=== PATIENT | female | born 1970 | race Caucasian/White ===

== ENCOUNTER → 2016-12-13 | Outpatient (CLI) | payer OTHER ==
[~2016-12-13] MED LIST: BUPIVACAINE HCL 0.25% 30 ML VIAL As Ordered ONE; ISOVUE-M 300 61% 15ML VIAL (Q9967) As Ordered ONE; LIDOCAINE 1% SDV INJ 30 ML VIAL As Ordered ONE; TRIAMCINOLONE ACETONIDE SUSP 40 MG/ML VIAL (J3301) As Ordered ONE; diazePAM 5 MG TAB As Ordered ONE; oxyCODONE 5MG TAB As Ordered ONE
--- NOTE | 2016-12-13 13:54 | REP ---
Partial SI joint series: Two views. History: SI joint block for pain. 35 seconds of fluoroscopy time is reported. Findings: A sequence of two fluoroscopically obtained into procedural spot radiographs of the right SI joint document needle position and contrast injection associated with SI joint injection procedure. Signed by Mark Lewis MD 12/13/2016 01:44 P
--- NOTE | 2016-12-19 00:39 | ECWPNPC ---
PATIENT NAME: ULISES PEREZ : 1970 GENDER: FEMALE VISIT DATE: 12/13/2016 DISCHARGE DATE: 12/13/16 1234 VISIT LOCKED DATE TIME: PHYSICIAN: SREE VILLALOBOS RESOURCE: SREE VILLALOBOS REASON FOR APPOINTMENT 1. SIJ HISTORY OF PRESENT ILLNESS HISTORY OF PRESENT ILLNESS: PAIN THE PATIENT DESCRIBES THE PAIN... FALL RISK SCREENING: SCREENING :NO FALLS IN THE PAST YEAR CURRENT MEDICATIONS TAKING PANTOPRAZOLE SODIUM 40 MG TABLET DELAYED RELEASE ORAL , NOTES: > 1 WEEK TAKING IBUPROFEN 400 MG TABLET ORAL THREE TIMES DAILY NEEDED, NOTES: 12/12/16 1400 TAKING LISINOPRIL 40 MG TABLET ORAL ONCE DAILY, NOTES: 12/13/16 0800 TAKING AMLODIPINE BESYLATE 10 MG TABLET ORAL ONCE DAILY, NOTES: 12/13/16 0800 TAKING VITAMIN D (ERGOCALCIFEROL) 14278 UNIT CAPSULE ORAL WEEKLY, NOTES: 12/08/16 TAKING REPAGLINIDE 2 MG TABLET ORAL BID, NOTES: 12/13/16 2100 TAKING OXYCODONE-ACETAMINOPHEN 5-325 MG TABLET 1 TAB ORAL Q8H PRN MDD3, NOTES: > 2 WEEKS TAKING TYLENOL 1 TAB ORAL EVERY 4 HOURS NEEDED, NOTES: > 2 WEEKS TAKING CYCLOBENZAPRINE HCL 5 MG TABLET 1 TAB ORAL THREE TIMES DAILY NEEDED, NOTES: > 2 WEEKS TAKING IBUPROFEN 800 MG TABLET 1 TABLET ORALLY THREE TIMES A DAY, NOTES: 12/12/16 1400 NOT-TAKING VALIUM 5 MG TABLET 1 ORALLY 1 TAB 1HR PREPROC. MDD1, NOTES: 08/15/16 10:45 NOT-TAKING OXYCODONE HCL 5 MG TABLET 1 TABLET ORALLY 1TAB 1HR PREPROC. MDD1, NOTES: 08/15/16 10:45 NOT-TAKING GABAPENTIN 100 MG CAPSULE ORAL UNKNOWN PREDNISONE 20 MG TABLET ORAL TAPERED DOSE MEDICATION LIST REVIEWED AND RECONCILED WITH THE PATIENT PAST MEDICAL HISTORY HEADACHE HTN POLYCYSTIC OVARIES SEASONAL ALLERGIC RHINITIS / HAY FEVER SLEEP APNEA ALLERGIES SULFA (FOR ALLERGY USE ONLY): RASH GRAPEFRIUT: RASH TOMATO: RASH SOCIAL HISTORY GENERAL: TOBACCO USE ARE YOU A:NONSMOKER LEARNING BARRIERS / SPECIAL NEEDS ORIENTED TO PLAN OF CARE: PATIENT, PAIN MANAGEMENT PATIENT, ORIENTED TO PLAN OF CARE: PATIENT, PAIN MANAGEMENT PATIENT. NEW PATIENT PAIN DIARY TODAY'S VISITNOTES FROM 0-10, WHAT LEVEL IS YOUR PAIN TODAY?0 PAIN CLINIC PFS, CLERGY, PUBLIC HEALTH REFERRALS PFS REFERRAL NEEDED?NO CLERGY REFERRAL NEEDED?NO PUBLIC HEALTH REFERRAL NEEDED?NO WAS THE PROVIDER NOTIFIED OF ANY PERTINENT INFO?NO PFS REFERRAL NEEDED?NO CLERGY REFERRAL NEEDED?NO PUBLIC HEALTH REFERRAL NEEDED?NO WAS THE PROVIDER NOTIFIED OF ANY PERTINENT INFO?NO REVIEW OF SYSTEMS CONSTITUTIONAL: ANY CHANGE IN YOUR MEDICAL CONDITION? NO . CHILLS NO . FEVER NO . INFECTION: DO YOU HAVE NEW INFECTIONS? NO . DO YOU HAVE HISTORY OF MRSA? NO . MUSCULOSKELETAL: ANY NEW PATTERNS OF PAIN OR NUMBNESS? NO . GASTROENTEROLOGY: ANY NEW CHANGE IN BOWEL CONTROL? NO . GENITOURINARY: ANY NEW CHANGE IN BLADDER CONTROL? NO . IS THERE A CHANCE YOU COULD BE ? NO . HEMATOLOGY/LYMPH: DO YOU TAKE ANY BLOOD THINNERS? (FOR EXAMPLE- COUMADIN, PLAVIX, AGGRENOX, PLATEL, PRADAXA, OR XARELTO) NO . WHEN WAS YOUR LAST DOSE? DATE: TIME: . NEUROLOGY: HAVE YOU FALLEN IN THE PAST 6 MONTHS? NO . ANY NEW EXTREMITY NUMBNESS OR WEAKNESS? NO . CARDIOLOGY: DO YOU HAVE A PACEMAKER OR DEFIBRILLATOR? NO . RESPIRATORY: HAVE YOU BEEN SICK IN THE PAST WEEK? NO . FEVER NO . FLU LIKE SYMPTOMS? NO . COUGH NO . INTEGUMENTARY: DO YOU HAVE ANY RASHES OR OPEN SORES? NO . ALLERGIC/IMMUNO: ARE YOU ALLERGIC TO SHELLFISH OR IV DYE? PT REPORTS SOME NAUSEA WITH IV DYE DURING CT SCAN. PT REPORTS SHE HAS HAD NO PROBLEM WITH DYE WITH PREVIOUS PROCEDURES AT PAIN CENTER . ANY NEW ALLERGIES? NO . PSYCHIATRIC: DO YOU HAVE THOUGHTS OF HURTING YOURSELF OR SOMEONE ELSE? NO . ARE YOU ABUSED, NEGLECTED, OR IN AN UNSAFE ENVIRONMENT? NO . ENDOCRINOLOGY: ARE YOU DIABETIC? YES . OTHER: DO YOU NEED ANY PRESCRIPTIONS? NO . IF YES, PLEASE LIST: ____ . ANY NEW PROBLEMS WITH YOUR MEDICATIONS? NO . WHEN DID YOU LAST EAT? ____12/12/16 1900 . WHEN DID YOU LAST DRINK? ____12/13/16 0800 . WHAT DID YOU LAST DRINK? ____WATER . NAME OF PERSON DRIVING YOU HOME? ____RICHARD LAGREE . DO YOU HAVE ANY OTHER QUESTIONS OR CONCERNS NO . REVIEWED BY: PROVIDER: . VITAL SIGNS WT 287.2 LBS, HT 65 IN, BMI 47.79 INDEX, BP 134/95 MM HG, HR 107 /MIN, RR 16 /MIN, TEMP 96.5 F, OXYGEN SAT % 98, NA INITIALS TL 1035, REVIEWED BY: ASSESSMENTS SACROILIITIS, NOT ELSEWHERE CLASSIFIED - M46.1 (PRIMARY) PROCEDURES PN SI PRE PROCEDURE DIAGNOSIS SACROILIITIS, SACROILIAC JOINT DYSFUNCTION POST PROCEDURE DIAGNOSIS SACROILIITIS, SACROILIAC JOINT DYSFUNCTION PROCEDURE ., RIGHT SACROILIAC JOINT BLOCK SURGEON DR. SREE VILLALOBOS PLANT OPERATIONS COORDINATOR NONE ANESTHESIA LOCAL PRE PROCEDURE NOTE PATIENT WITH HISTORY OF CHRONIC LOW BACK PAIN. I EVALUATED THE PATIENT AND REVIEWED THE CHART. I WENT OVER THE RISKS, ALTERNATIVES, AND BENEFITS ASSOCIATED WITH THIS PROCEDURE. THE PATIENT WOULD LIKE TO PROCEED AND GAVE CONSENT TO PERFORM THE PROCEDURE. THE PATIENT DENIES UNEXPLAINABLE WEIGHT LOSS, FEVER, CHILLS, OR NEW CHANGES IN URINARY OR BOWEL CONTROL DESCRIPTION OF PROCEDURE THE PATIENT WAS BROUGHT TO THE PROCEDURE ROOM AND PLACED IN THE PRONE POSITION. THE LUMBOSACRAL AREA WAS CLEANED WITH CHLORAPREP SOLUTION AND DRAPED ASEPTICALLY. THE PROCEDURE WAS DONE UNDER STERILE CONDITIONS. I CHECKED LATERALITY AND THE LEVEL WHERE THE PROCEDURE WAS GOING TO BE PERFORMED WITH THE PATIENT AND THE SUPPORTING STAFF AT THE MOMENT OF THE TIME OUT IN THE PROCEDURE ROOM. UNDER FLUOROSCOPIC GUIDANCE, TARGET POINT WAS SELECTED AT THE LOWER BORDER OF THE RIGHT SACROILIAC JOINT. TARGET POINT WAS SELECTED AFTER MEDIAL ROTATION AND TILT OF THE MAGNIFIER OF THE C-ARM. LIDOCAINE WAS USED TO NUMB THE SKIN AND SUBCUTANEOUS TISSUE BELOW IT. A SPINAL NEEDLE, 22-GAUGE, WAS ADVANCED UNDER FLUOROSCOPIC GUIDANCE AND FOLLOWING PATIENT FEEDBACK UNTIL THE TARGET AREA WAS TOUCHED. THE POSITION OF THE NEEDLE WAS VERIFIED WITH AP AND LATERAL VIEWS. AFTER PROPER POSITION OF THE NEEDLE WAS ACHIEVED, ISOVUE M DYE 30%, 0.25 ML, WAS INJECTED SHOWING SPREAD OF THE DYE. THEN, A SOLUTION OF 20 MG OF KENALOG WAS INJECTED IN RIGHT JOINT WITH 3 ML OF BUPIVACAINE 0.125%. THERE WAS NO EVIDENCE OF BLOOD, PARESTHESIA OR CEREBROSPINAL FLUID DURING THE PROCEDURE. THE PATIENT WAS SENT TO THE RECOVERY ROOM. THE PATIENT WAS MOVING THE EXTREMITIES AND DOING WELL. THERE WAS NO COMPLICATION DURING THE PROCEDURE. FLUOROSCOPY TIME WAS 35 SECONDS POST PROCEDURE NOTE THE PATIENT WILL BE SEEN IN A FOLLOW UP IN THE NEXT FEW WEEKS. INSTRUCTIONS WERE GIVEN, QUESTIONS WERE ANSWERED, AND THE PATIENT EXPRESSED UNDERSTANDING AND AGREED WITH THE PLAN. INSTRUCTIONS WERE GIVEN, QUESTIONS WERE ANSWERED, PATIENT REPORTS UNDERSTANDING AND AGREES WITH THE PLAN. I, KYLEE AMBROCIO, DOCUMENTED THE ABOVE INFORMATION ACTING A SCRIBE FOR DR. VILLALOBOS. I HAVE REVIEWED THE ABOVE DOCUMENT, WRITTEN BY KYLEE AMBROCIO SCRIBE AND I VERIFY THAT IT IS ACCURATE. DIAGNOSTIC IM[facility] FLUORO GUIDANCE (PAIN)[id number] PROCEDURE CODES 30016 INJECT SACROILIAC JOINT 6045F RADXPS IN END [id number] PXD FOLLOW UP 3 WEEKS ELECTRONICALLY SIGNED BY SREE VILLALOBOS MD ON 12/18/2016 AT 08:22 PM EST DISCLAIMER : THIS IS A VISIT SUMMARY EXTRACTED FROM THE [employer] CHART. IT IS NOT A COPY OF THE [employer] PROGRESS NOTE. MTDD
== END ==
LOC: M PAIN 10:50
PROVIDERS: ATTEND Anesthesiology
DX: M46.1 Sacroiliitis, not elsewhere classified (principal); M54.5 Low back pain; Z79.891 Long term (current) use of opiate analgesic; Z79.899 Other long term (current) drug therapy; I10 Essential (primary) hypertension; Z91.018 Allergy to other foods; Z88.2 Allergy status to sulfonamides

== ENCOUNTER → 2017-01-03 | Outpatient (CLI) | payer MEDICAID ==
--- NOTE | 2017-01-04 00:43 | ECWPNPC ---
PATIENT NAME: ULISES PEREZ : 1970 GENDER: FEMALE VISIT DATE: 01/03/2017 DISCHARGE DATE: 01/03/17 1115 VISIT LOCKED DATE TIME: PHYSICIAN: GADIEL MAGDALENO RESOURCE: GADIEL MAGDALENO REASON FOR APPOINTMENT 1. POST PROCEDURE- RIGHT SI JOINT HISTORY OF PRESENT ILLNESS HISTORY OF PRESENT ILLNESS: HERE FOR POST PROC. F/U.HAD RSIJ ON 12-13-16.RATING PAIN VAS 2/10.PAIN IS LOCATED ACROSS LOW BACK.DENIES RADICULAR SYMPTOMS.MRI L/S SPINE SHOWING MULTI LEVEL DEGENERATIVE CHANGES. FALL RISK SCREENING: SCREENING :NO FALLS IN THE PAST YEAR CURRENT MEDICATIONS TAKING PANTOPRAZOLE SODIUM 40 MG TABLET DELAYED RELEASE ORAL ONCE A DAY, NOTES: > 1 WEEK TAKING IBUPROFEN 400 MG TABLET ORAL THREE TIMES DAILY NEEDED, NOTES: 12/12/16 1400 TAKING LISINOPRIL 40 MG TABLET ORAL ONCE DAILY, NOTES: 12/13/16 0800 TAKING AMLODIPINE BESYLATE 10 MG TABLET ORAL ONCE DAILY, NOTES: 12/13/16 0800 TAKING VITAMIN D (ERGOCALCIFEROL) [id number] UNIT CAPSULE ORAL WEEKLY, NOTES: 12/08/16 TAKING REPAGLINIDE 2 MG TABLET ORAL BID, NOTES: 12/13/16 2100 TAKING OXYCODONE-ACETAMINOPHEN 5-325 MG TABLET 1 TAB ORAL Q8H PRN MDD3, NOTES: > 2 WEEKS TAKING TYLENOL 1 TAB ORAL EVERY 4 HOURS NEEDED, NOTES: > 2 WEEKS TAKING CYCLOBENZAPRINE HCL 5 MG TABLET 1 TAB ORAL THREE TIMES DAILY NEEDED, NOTES: > 2 WEEKS TAKING IBUPROFEN 800 MG TABLET 1 TABLET ORALLY 3X/DAY NEEDED, NOTES: 12/12/16 1400 NOT-TAKING VALIUM 5 MG TABLET 1 ORALLY 1 TAB 1HR PREPROC. MDD1, NOTES: 08/15/16 10:45 NOT-TAKING OXYCODONE HCL 5 MG TABLET 1 TABLET ORALLY 1TAB 1HR PREPROC. MDD1, NOTES: 08/15/16 10:45 NOT-TAKING GABAPENTIN 100 MG CAPSULE ORAL UNKNOWN PREDNISONE 20 MG TABLET ORAL TAPERED DOSE MEDICATION LIST REVIEWED AND RECONCILED WITH THE PATIENT PAST MEDICAL HISTORY HEADACHE HTN POLYCYSTIC OVARIES SEASONAL ALLERGIC RHINITIS / HAY FEVER SLEEP APNEA ALLERGIES SULFA (FOR ALLERGY USE ONLY): RASH GRAPEFRIUT: RASH TOMATO: RASH SOCIAL HISTORY GENERAL: TOBACCO USE ARE YOU A:NONSMOKER LEARNING BARRIERS / SPECIAL NEEDS ORIENTED TO PLAN OF CARE: PATIENT, PAIN MANAGEMENT PATIENT, ORIENTED TO PLAN OF CARE: PATIENT, PAIN MANAGEMENT PATIENT. NEW PATIENT PAIN DIARY TODAY'S VISITNOTES FROM 0-10, WHAT LEVEL IS YOUR PAIN TODAY?0 PAIN CLINIC PFS, CLERGY, PUBLIC HEALTH REFERRALS PFS REFERRAL NEEDED?NO CLERGY REFERRAL NEEDED?NO PUBLIC HEALTH REFERRAL NEEDED?NO WAS THE PROVIDER NOTIFIED OF ANY PERTINENT INFO?NO PFS REFERRAL NEEDED?NO CLERGY REFERRAL NEEDED?NO PUBLIC HEALTH REFERRAL NEEDED?NO WAS THE PROVIDER NOTIFIED OF ANY PERTINENT INFO?NO REVIEW OF SYSTEMS CONSTITUTIONAL: ANY CHANGE IN YOUR MEDICAL CONDITION? NO . CHILLS NO . FEVER NO . INFECTION: DO YOU HAVE NEW INFECTIONS? NO . DO YOU HAVE HISTORY OF MRSA? NO . MUSCULOSKELETAL: ANY NEW PATTERNS OF PAIN OR NUMBNESS? YES PT NOTES SHARP PAIN IN NECK/RIGHT SIDE OF HEAD WITH ELEVATING ARMS. RELIEVED WITH REST. . GASTROENTEROLOGY: ANY NEW CHANGE IN BOWEL CONTROL? NO . GENITOURINARY: ANY NEW CHANGE IN BLADDER CONTROL? NO . IS THERE A CHANCE YOU COULD BE ? NO . HEMATOLOGY/LYMPH: DO YOU TAKE ANY BLOOD THINNERS? (FOR EXAMPLE- COUMADIN, PLAVIX, AGGRENOX, PLATEL, PRADAXA, OR XARELTO) NO . WHEN WAS YOUR LAST DOSE? DATE: TIME: . NEUROLOGY: HAVE YOU FALLEN IN THE PAST 6 MONTHS? NO . ANY NEW EXTREMITY NUMBNESS OR WEAKNESS? NO . CARDIOLOGY: DO YOU HAVE A PACEMAKER OR DEFIBRILLATOR? NO . RESPIRATORY: HAVE YOU BEEN SICK IN THE PAST WEEK? NO . FEVER NO . FLU LIKE SYMPTOMS? NO . COUGH NO . INTEGUMENTARY: DO YOU HAVE ANY RASHES OR OPEN SORES? NO . ALLERGIC/IMMUNO: ARE YOU ALLERGIC TO SHELLFISH OR IV DYE? NO . ANY NEW ALLERGIES? NO . PSYCHIATRIC: DO YOU HAVE THOUGHTS OF HURTING YOURSELF OR SOMEONE ELSE? NO . ARE YOU ABUSED, NEGLECTED, OR IN AN UNSAFE ENVIRONMENT? NO . ENDOCRINOLOGY: ARE YOU DIABETIC? YES . OTHER: DO YOU NEED ANY PRESCRIPTIONS? NO . IF YES, PLEASE LIST: ____ . ANY NEW PROBLEMS WITH YOUR MEDICATIONS? NO . WHEN DID YOU LAST EAT? ____ . WHEN DID YOU LAST DRINK? ____ . WHAT DID YOU LAST DRINK? ____ . NAME OF PERSON DRIVING YOU HOME? ____ . DO YOU HAVE ANY OTHER QUESTIONS OR CONCERNS NO . REVIEWED BY: PROVIDER: GADIEL BERGERON . VITAL SIGNS WT 288 LBS, HT 65 IN, BMI 47.92 INDEX, BP 150/92 MM HG, HR 100 /MIN, RR 16 /MIN, TEMP 97.4 F, OXYGEN SAT % 96%, NA INITIALS SC 10:39, REVIEWED BY: MLF. EXAMINATION GENERAL EXAMINATION: HEENT:HEAD:, NORMOCEPHALIC, EYES:, EYES NORMAL, NOSE:, NOSE CLEAR, THROAT: NORMAL. LUNGS:LUNG SOUNDS ARE CLEAR. HEART:HEART RATE REGULAR. ABDOMEN:SOFT AND NOT TENDER, NON-DISTENDED. MUSCULOSKELETAL:*. LUMBAR SACRAL SPINEMUSCLE STRENGTH TESTING5/5 BILATERAL. PALPATION: NEGATIVE FOR PAIN OVER L/S SPINE. ..MILD POINT TENDERNESS OVER BILAT. SACROILLIAC JOINT. SKIN:NORMAL, NO RASH. NEUROLOGIC EXAM:ALERT AND ORIENTED X 3, DTRS 1-2+ IN ALL 4 EXTREMITIES, DENIES UPPER EXTREMETIES SENSORY LOSS, DENIES LOWER EXTREMETIES SENSORY LOSS. DIAGNOSTIC:MRI L/S [id number]/5 AND L5/S1 BULGING DISC AND FACET ARTHROPATHY.. ASSESSMENTS SACROILIAC JOINT PAIN - M53.3 (PRIMARY) LUMBAR FACET ARTHROPATHY - M12.88 TREATMENT SACROILIAC JOINT PAIN NOTES: PATIENT WAS ADVISED TO START A WALKING PROGRAM TO STRENGTHEN LUMBAR PARASPINAL MUSCLES AND IMPROVE MOBILITY. THEY WERE ADVISED THAT THIS WILL IMPROVE WEIGHT LOSS AND ALSO DEPRESSION/FIBROMYALGIA SYMPTOMS. ADVISED TO WALK 10 MINUTES EVERY OTHER DAY ON A FLAT SURFACE. EMPHASIZED THE IMPORTANCE OF DOING THIS CONSISTANTLY AND NOT SPORATICALLY TO AVOID INJURY. STRONG ADVISED NOT TO DO MORE THAN 10 MINUTES EVERY OTHER DSY FOR THE FIRST 4 WEEKS. PROCEDURE CODES FA211 ESTABILISHED PATIENT [facility] CHARGE FOLLOW UP 2 MONTHS ELECTRONICALLY SIGNED BY RUBIO MARTINEZ ON 01/03/2017 AT 01:09 PM EST DISCLAIMER : THIS IS A VISIT SUMMARY EXTRACTED FROM THE [employer] CHART. IT IS NOT A COPY OF THE [employer] PROGRESS NOTE. SHELLEY
== END ==
LOC: M PAIN 10:20
PROVIDERS: ATTEND Nurse Practitioner Family
DX: Z09 Encounter for follow-up examination after completed treatment for conditions other than malignant neoplasm (principal); G89.29 Other chronic pain; M53.3 Sacrococcygeal disorders, not elsewhere classified; M12.88 Other specific arthropathies, not elsewhere classified, other specified site; E11.9 Type 2 diabetes mellitus without complications; R51 Headache; I10 Essential (primary) hypertension; J30.89 Other allergic rhinitis; G47.30 Sleep apnea, unspecified; Z88.2 Allergy status to sulfonamides; Z91.018 Allergy to other foods; Z79.1 Long term (current) use of non-steroidal anti-inflammatories (NSAID); Z79.891 Long term (current) use of opiate analgesic; Z79.899 Other long term (current) drug therapy

== ENCOUNTER → 2017-03-03 | Outpatient (CLI) | payer OTHER ==
--- NOTE | 2017-03-07 00:58 | ECWPNPC ---
PATIENT NAME: ULISES PEREZ : 1970 GENDER: FEMALE VISIT DATE: 03/03/2017 DISCHARGE DATE: 03/03/17 1003 VISIT LOCKED DATE TIME: PHYSICIAN: GADIEL MAGDALENO RESOURCE: GADIEL MAGDALENO REASON FOR APPOINTMENT 1. FOLLOWUP HISTORY OF PRESENT ILLNESS HISTORY OF PRESENT ILLNESS: PAIN THE PATIENT DESCRIBES THE PAIN... HERE FOR ROUTINE F/U OF CHRONIC LOW BACK AND THORACIC PAIN.DESCRIBES PAIN TENDER AND ACHING.RATING PAIN VAS 4/10.DESCRIBING RIGHT POSTERIOR HEADACHE THAT OCCURS ALONG RIGHT OCIPITAL NERVE ROUTE.THIS OCCURS WHEN LIFTING LAUNDRY OR HOLDING AN ITEM FOR ANY LENGTH OF TIME.THIS IS A CHRONIC ISSUE THAT SEEMS TO BE MORE FREQUENT LATELY.PATIENT FELL DOWN SEVEN STAIRS ONE WEEK AGO.USING IBUPROFEN 400MG BID AND HEAT. FALL RISK SCREENING: SCREENING :ONE FALL WITHOUT INJURY IN THE PAST YEAR CURRENT MEDICATIONS TAKING PANTOPRAZOLE SODIUM 40 MG TABLET DELAYED RELEASE ORAL ONCE A DAY, NOTES: > 1 WEEK TAKING IBUPROFEN 400 MG TABLET ORAL THREE TIMES DAILY NEEDED, NOTES: 12/12/16 1400 TAKING LISINOPRIL 40 MG TABLET ORAL ONCE DAILY, NOTES: 12/13/16 0800 TAKING AMLODIPINE BESYLATE 10 MG TABLET ORAL ONCE DAILY, NOTES: 12/13/16 0800 TAKING VITAMIN D (ERGOCALCIFEROL) [id number] UNIT CAPSULE ORAL WEEKLY, NOTES: 12/08/16 TAKING REPAGLINIDE 2 MG TABLET ORAL BID, NOTES: 12/13/16 2100 TAKING OXYCODONE-ACETAMINOPHEN 5-325 MG TABLET 1 TAB ORAL Q8H PRN MDD3, NOTES: > 2 WEEKS TAKING TYLENOL 1 TAB ORAL EVERY 4 HOURS NEEDED, NOTES: > 2 WEEKS TAKING CYCLOBENZAPRINE HCL 5 MG TABLET 1 TAB ORAL THREE TIMES DAILY NEEDED, NOTES: > 2 WEEKS TAKING IBUPROFEN 800 MG TABLET 1 TABLET ORALLY 3X/DAY NEEDED, NOTES: 12/12/16 1400 NOT-TAKING VALIUM 5 MG TABLET 1 ORALLY 1 TAB 1HR PREPROC. MDD1, NOTES: 08/15/16 10:45 NOT-TAKING OXYCODONE HCL 5 MG TABLET 1 TABLET ORALLY 1TAB 1HR PREPROC. MDD1, NOTES: 08/15/16 10:45 NOT-TAKING GABAPENTIN 100 MG CAPSULE ORAL UNKNOWN PREDNISONE 20 MG TABLET ORAL TAPERED DOSE MEDICATION LIST REVIEWED AND RECONCILED WITH THE PATIENT PAST MEDICAL HISTORY HEADACHE HTN POLYCYSTIC OVARIES SEASONAL ALLERGIC RHINITIS / HAY FEVER SLEEP APNEA ALLERGIES SULFA (FOR ALLERGY USE ONLY): RASH GRAPEFRIUT: RASH TOMATO: RASH SOCIAL HISTORY GENERAL: PAIN CLINIC PFS, CLERGY, PUBLIC HEALTH REFERRALS CLERGY REFERRAL NEEDED?NO WAS THE PROVIDER NOTIFIED OF ANY PERTINENT INFO?NO PFS REFERRAL NEEDED?NO PUBLIC HEALTH REFERRAL NEEDED?NO PATIENT: ____. REVIEW OF SYSTEMS CONSTITUTIONAL: ANY CHANGE IN YOUR MEDICAL CONDITION? NO . CHILLS NO . FEVER NO . INFECTION: DO YOU HAVE NEW INFECTIONS? NO . DO YOU HAVE HISTORY OF MRSA? NO . MUSCULOSKELETAL: ANY NEW PATTERNS OF PAIN OR NUMBNESS? YESPAIN HEADACHES BY THE EAR AND HEAD . GASTROENTEROLOGY: ANY NEW CHANGE IN BOWEL CONTROL? NO . GENITOURINARY: ANY NEW CHANGE IN BLADDER CONTROL? NO . IS THERE A CHANCE YOU COULD BE ? NO . HEMATOLOGY/LYMPH: DO YOU TAKE ANY BLOOD THINNERS? (FOR EXAMPLE- COUMADIN, PLAVIX, AGGRENOX, PLATEL, PRADAXA, OR XARELTO) NO . WHEN WAS YOUR LAST DOSE? DATE: TIME: . NEUROLOGY: HAVE YOU FALLEN IN THE PAST 6 MONTHS? NO . ANY NEW EXTREMITY NUMBNESS OR WEAKNESS? NO . CARDIOLOGY: DO YOU HAVE A PACEMAKER OR DEFIBRILLATOR? NO . RESPIRATORY: HAVE YOU BEEN SICK IN THE PAST WEEK? NO . FEVER NO . FLU LIKE SYMPTOMS? NO . COUGH NO . INTEGUMENTARY: DO YOU HAVE ANY RASHES OR OPEN SORES? NO . ALLERGIC/IMMUNO: ARE YOU ALLERGIC TO SHELLFISH OR IV DYE? NO . ANY NEW ALLERGIES? NO . PSYCHIATRIC: DO YOU HAVE THOUGHTS OF HURTING YOURSELF OR SOMEONE ELSE? NO . ARE YOU ABUSED, NEGLECTED, OR IN AN UNSAFE ENVIRONMENT? NO . ENDOCRINOLOGY: ARE YOU DIABETIC? YES . OTHER: DO YOU NEED ANY PRESCRIPTIONS? NO . IF YES, PLEASE LIST: ____ . ANY NEW PROBLEMS WITH YOUR MEDICATIONS? NO . WHEN DID YOU LAST EAT? ____ . WHEN DID YOU LAST DRINK? ____ . WHAT DID YOU LAST DRINK? ____ . NAME OF PERSON DRIVING YOU HOME? ____ . DO YOU HAVE ANY OTHER QUESTIONS OR CONCERNS YES,TCONTIMMY WIRH HEADACHES AND PAIN IN BY THE EAR WHEN DOING SIMPLE TASKS, SUCH LIFTING A BOWL AND TREFERRILNT TO AN PAIN WHEN MAKING BROWNIES. . REVIEWED BY: PROVIDER: GADIEL BERGERON . VITAL SIGNS WT 298.4 LBS, HT 65 IN, BMI 49.65 INDEX, BP 167/92 MM HG, HR 120 /MIN, RR 18 /MIN, TEMP 97.6 F, OXYGEN SAT % 94%, NA INITIALS SC 08:54, REVIEWED BY: VD. EXAMINATION GENERAL EXAMINATION: HEENT:HEAD:, NORMOCEPHALIC, EYES:, EYES NORMAL, NOSE:, NOSE CLEAR, THROAT: NORMAL. LUNGS:LUNG SOUNDS ARE CLEAR. HEART:HEART RATE REGULAR. ABDOMEN:SOFT AND NOT TENDER, NON-DISTENDED. MUSCULOSKELETAL:*. LUMBAR SACRAL SPINEMUSCLE STRENGTH TESTING5/5 BILATERAL. PALPATION: NEGATIVE FOR PAIN OVER L/S SPINE. SIGNIFICANT POINT TENDERNESS OVER BILAT. SACROILLIAC JOINT R>L. SKIN:NORMAL, NO RASH. NEUROLOGIC EXAM:ALERT AND ORIENTED X 3, DTRS 1-2+ IN ALL 4 EXTREMITIES, DENIES UPPER EXTREMETIES SENSORY LOSS, DENIES LOWER EXTREMETIES SENSORY LOSS. DIAGNOSTIC:MRI L/S [id number]/5 AND L5/S1 BULGING DISC AND FACET ARTHROPATHY.. ASSESSMENTS SACROILIAC JOINT PAIN - M53.3 (PRIMARY) LUMBAR FACET ARTHROPATHY - M12.88 TREATMENT SACROILIAC JOINT PAIN CONTINUE IBUPROFEN TABLET, 400 MG, ORAL, THREE TIMES DAILY NEEDED, NOTES: 12/12/16 1400 CONTINUE OXYCODONE-ACETAMINOPHEN TABLET, 5-325 MG, 1 TAB, ORAL, Q8H PRN MDD3, NOTES: > 2 WEEKS CONTINUE CYCLOBENZAPRINE HCL TABLET, 5 MG, 1 TAB, ORAL, THREE TIMES DAILY NEEDED, NOTES: > 2 WEEKS INJECTION ANESTHETIC SACROILIAC JOINT NOTES: FACET JOINT INJECTION: YOUR EXPERIENCE MATERIAL WAS PRINTED,PATIENT EDUCATION WAS PRINTED. PROCEDURE CODES FA211 ESTABILISHED PATIENT [facility] CHARGE DISPOSITION & COMMUNICATION FOLLOW UP 2 MOS (REASON: BILAT. SIJ) ELECTRONICALLY SIGNED BY RUBIO MARTINEZ ON 03/03/2017 AT 10:25 AM EDT DISCLAIMER : THIS IS A VISIT SUMMARY EXTRACTED FROM THE [employer] CHART. IT IS NOT A COPY OF THE [employer] PROGRESS NOTE. SHELLEY
== END ==
LOC: M PAIN 08:40
PROVIDERS: ATTEND Nurse Practitioner Family
DX: M53.3 Sacrococcygeal disorders, not elsewhere classified (principal); M12.88 Other specific arthropathies, not elsewhere classified, other specified site; M54.5 Low back pain; M54.6 Pain in thoracic spine; G89.29 Other chronic pain; Z79.891 Long term (current) use of opiate analgesic; Z79.899 Other long term (current) drug therapy; Z88.2 Allergy status to sulfonamides; Z91.018 Allergy to other foods; I10 Essential (primary) hypertension; R51 Headache; G47.30 Sleep apnea, unspecified; J30.1 Allergic rhinitis due to pollen

== ENCOUNTER → 2017-04-14 | Outpatient (CLI) | payer OTHER ==
--- NOTE | 2017-04-14 12:58 | REP ---
Partial SI joint series: Five views. History: Injection procedure for pain. 38 seconds of fluoroscopy time is reported. Findings: A sequence of two fluoroscopically obtained last image hold spot radiographs of the SI joints document various needle positions and contrast injections associated with SI joint injection procedure. Signed by Mark Lewis MD 04/14/2017 03:17 P
--- NOTE | 2017-04-19 23:34 | ECWPNPC ---
PATIENT NAME: ULISES PEREZ : 1970 GENDER: FEMALE VISIT DATE: 04/14/2017 DISCHARGE DATE: 04/14/17 1242 VISIT LOCKED DATE TIME: PHYSICIAN: SREE VILLALOBOS RESOURCE: SERE VILLALOBOS REASON FOR APPOINTMENT 1. SIJ HISTORY OF PRESENT ILLNESS HISTORY OF PRESENT ILLNESS: PAIN THE PATIENT DESCRIBES THE PAIN... FALL RISK SCREENING: SCREENING :NO FALLS IN THE PAST YEAR CURRENT MEDICATIONS TAKING LISINOPRIL 40 MG TABLET ORAL ONCE DAILY, NOTES: 04/14/17 0500 TAKING AMLODIPINE BESYLATE 10 MG TABLET ORAL ONCE DAILY, NOTES: 04/14/17 0500 TAKING VITAMIN D (ERGOCALCIFEROL) 51071 UNIT CAPSULE ORAL WEEKLY, NOTES: 04/13/17 1300 TAKING REPAGLINIDE 2 MG TABLET ORAL BID, NOTES: 04/13/17 1000 TAKING TYLENOL 1 TAB 500MGS ORAL EVERY 4 HOURS NEEDED, NOTES: NONE RECENT TAKING IBUPROFEN 800 MG TABLET 1 TABLET ORALLY 3X/DAY NEEDED, NOTES: 04/13/17 1000 TAKING IBUPROFEN 400 MG TABLET ORAL THREE TIMES DAILY NEEDED, NOTES: NONE RECENT TAKING OXYCODONE-ACETAMINOPHEN 5-325 MG TABLET 1 TAB ORAL Q8H PRN MDD3, NOTES: NONE RECENT TAKING CYCLOBENZAPRINE HCL 5 MG TABLET 1 TAB ORAL THREE TIMES DAILY NEEDED, NOTES: NONE RECENT NOT-TAKING PANTOPRAZOLE SODIUM 40 MG TABLET DELAYED RELEASE ORAL ONCE A DAY NOT-TAKING INVOKANA 300 MG TABLET 1 TABLET ORALLY ONCE A DAY NOT-TAKING VALIUM 5 MG TABLET 1 ORALLY 1 TAB 1HR PREPROC. MDD1, NOTES: 08/15/16 10:45 NOT-TAKING OXYCODONE HCL 5 MG TABLET 1 TABLET ORALLY 1TAB 1HR PREPROC. MDD1, NOTES: 08/15/16 10:45 NOT-TAKING GABAPENTIN 100 MG CAPSULE ORAL UNKNOWN PREDNISONE 20 MG TABLET ORAL TAPERED DOSE MEDICATION LIST REVIEWED AND RECONCILED WITH THE PATIENT PAST MEDICAL HISTORY HEADACHE HTN POLYCYSTIC OVARIES SEASONAL ALLERGIC RHINITIS / HAY FEVER SLEEP APNEA ALLERGIES SULFA (FOR ALLERGY USE ONLY): RASH GRAPEFRIUT: RASH TOMATO: RASH REVIEW OF SYSTEMS CONSTITUTIONAL: ANY CHANGE IN YOUR MEDICAL CONDITION? NO . CHILLS NO . FEVER NO . INFECTION: DO YOU HAVE NEW INFECTIONS? NO . DO YOU HAVE HISTORY OF MRSA? NO . MUSCULOSKELETAL: ANY NEW PATTERNS OF PAIN OR NUMBNESS? NO . GASTROENTEROLOGY: ANY NEW CHANGE IN BOWEL CONTROL? NO . GENITOURINARY: ANY NEW CHANGE IN BLADDER CONTROL? NO . IS THERE A CHANCE YOU COULD BE ? NO . HEMATOLOGY/LYMPH: DO YOU TAKE ANY BLOOD THINNERS? (FOR EXAMPLE- COUMADIN, PLAVIX, AGGRENOX, PLATEL, PRADAXA, OR XARELTO) NO . WHEN WAS YOUR LAST DOSE? DATE: TIME: . NEUROLOGY: HAVE YOU FALLEN IN THE PAST 6 MONTHS? YES, COUPLE OF MONTHS AGO, LOST HER FOOTING, NOT INJURY . ANY NEW EXTREMITY NUMBNESS OR WEAKNESS? NO . CARDIOLOGY: DO YOU HAVE A PACEMAKER OR DEFIBRILLATOR? NO . RESPIRATORY: HAVE YOU BEEN SICK IN THE PAST WEEK? NO . FEVER NO . FLU LIKE SYMPTOMS? NO . COUGH NO . INTEGUMENTARY: DO YOU HAVE ANY RASHES OR OPEN SORES? NO . ALLERGIC/IMMUNO: ARE YOU ALLERGIC TO SHELLFISH OR IV DYE? NO . ANY NEW ALLERGIES? NO . PSYCHIATRIC: DO YOU HAVE THOUGHTS OF HURTING YOURSELF OR SOMEONE ELSE? NO . ARE YOU ABUSED, NEGLECTED, OR IN AN UNSAFE ENVIRONMENT? NO . ENDOCRINOLOGY: ARE YOU DIABETIC? YES,DIDN'T DO FSBS THIS A.M&NBSP;. OTHER: DO YOU NEED ANY PRESCRIPTIONS? NO . IF YES, PLEASE LIST: ____ . ANY NEW PROBLEMS WITH YOUR MEDICATIONS? YES, INVOKANA CAUSED YEAST INFECTION AND DIARRHEA SO SHE STOPPED TAKING IT AND WILL LET HER PCP KNOW. . WHEN DID YOU LAST EAT? 04/13/17 1800 . WHEN DID YOU LAST DRINK? 04/14/17 0700 . WHAT DID YOU LAST DRINK? SIP OF WATER WITH MEDS . NAME OF PERSON DRIVING YOU HOME? AUNT--LINDA SHULTZ . DO YOU HAVE ANY OTHER QUESTIONS OR CONCERNS NO . REVIEWED BY: PROVIDER: . VITAL SIGNS WT 290.2 LBS, HT 65 IN, BMI 48.29 INDEX, BP 146/98 MM HG, HR 108 /MIN, RR 18 /MIN, TEMP 97.7 F, OXYGEN SAT % 94%, NA INITIALS TL 1035, REVIEWED BY: 04/14/17 STATES THAT HER PCP IS MONITORING HER ELEVATED HR. AD. ASSESSMENTS SACROILIITIS, NOT ELSEWHERE CLASSIFIED - M46.1 (PRIMARY) PROCEDURES PN SI PRE PROCEDURE DIAGNOSIS SACROILIITIS, SACROILIAC JOINT DYSFUNCTION POST PROCEDURE DIAGNOSIS SACROILIITIS, SACROILIAC JOINT DYSFUNCTION PROCEDURE RIGHT SACROILIAC JOINT BLOCK SURGEON DR. SREE VILLALOBOS TOOL ANALYST NONE ANESTHESIA LOCAL PRE PROCEDURE NOTE PATIENT WITH HISTORY OF CHRONIC LOW BACK PAIN. I EVALUATED THE PATIENT AND REVIEWED THE CHART. I WENT OVER THE RISKS, ALTERNATIVES, AND BENEFITS ASSOCIATED WITH THIS PROCEDURE. THE PATIENT WOULD LIKE TO PROCEED AND GAVE CONSENT TO PERFORM THE PROCEDURE. THE PATIENT DENIES UNEXPLAINABLE WEIGHT LOSS, FEVER, CHILLS, OR NEW CHANGES IN URINARY OR BOWEL CONTROL DESCRIPTION OF PROCEDURE THE PATIENT WAS BROUGHT TO THE PROCEDURE ROOM AND PLACED IN THE PRONE POSITION. THE LUMBOSACRAL AREA WAS CLEANED WITH CHLORAPREP SOLUTION AND DRAPED ASEPTICALLY. THE PROCEDURE WAS DONE UNDER STERILE CONDITIONS. I CHECKED LATERALITY AND THE LEVEL WHERE THE PROCEDURE WAS GOING TO BE PERFORMED WITH THE PATIENT AND THE SUPPORTING STAFF AT THE MOMENT OF THE TIME OUT IN THE PROCEDURE ROOM. UNDER FLUOROSCOPIC GUIDANCE, TARGET POINT WAS SELECTED AT THE LOWER BORDER OF THE RIGHT SACROILIAC JOINT. TARGET POINT WAS SELECTED AFTER MEDIAL ROTATION AND TILT OF THE MAGNIFIER OF THE C-ARM. LIDOCAINE WAS USED TO NUMB THE SKIN AND SUBCUTANEOUS TISSUE BELOW IT. A SPINAL NEEDLE, 22-GAUGE, WAS ADVANCED UNDER FLUOROSCOPIC GUIDANCE AND FOLLOWING PATIENT FEEDBACK UNTIL THE TARGET AREA WAS TOUCHED. THE POSITION OF THE NEEDLE WAS VERIFIED WITH AP AND LATERAL VIEWS. AFTER PROPER POSITION OF THE NEEDLE WAS ACHIEVED, ISOVUE M DYE 30%, 0.25 ML, WAS INJECTED SHOWING SPREAD OF THE DYE. THEN, A SOLUTION OF 20 MG OF KENALOG WAS INJECTED IN RIGHT JOINT WITH 3 ML OF BUPIVACAINE 0.125%. THERE WAS NO EVIDENCE OF BLOOD, PARESTHESIA OR CEREBROSPINAL FLUID DURING THE PROCEDURE. THE PATIENT WAS SENT TO THE RECOVERY ROOM. THE PATIENT WAS MOVING THE EXTREMITIES AND DOING WELL. THERE WAS NO COMPLICATION DURING THE PROCEDURE. FLUOROSCOPY TIME WAS 38 SECONDS POST PROCEDURE NOTE THE PATIENT WILL BE SEEN IN A FOLLOW UP IN THE NEXT FEW WEEKS. INSTRUCTIONS WERE GIVEN, QUESTIONS WERE ANSWERED, AND THE PATIENT EXPRESSED UNDERSTANDING AND AGREED WITH THE PLAN. I, FRANSISCO HAIDER, DOCUMENTED THE ABOVE INFORMATION ACTING A SCRIBE FOR DR. VILLALOBOS. I HAVE REVIEWED THE ABOVE DOCUMENT, WRITTEN BY FRANSISCO DELEON AND I VERIFY THAT IT IS [facility] FLUORO GUIDANCE (PAIN)[id number] PROCEDURE CODES 79963 INJECT SACROILIAC JOINT 6045F RADXPS IN END [id number] PXD DISPOSITION & COMMUNICATION FOLLOW UP 3 WEEKS ELECTRONICALLY SIGNED BY RSEE VILLALOBOS MD ON 04/19/2017 AT 07:19 PM EDT DISCLAIMER : THIS IS A VISIT SUMMARY EXTRACTED FROM THE [employer] CHART. IT IS NOT A COPY OF THE [employer] PROGRESS NOTE. MTDD
== END ==
LOC: M PAIN 10:20
PROVIDERS: ATTEND Anesthesiology
DX: G89.29 Other chronic pain (principal); M46.1 Sacroiliitis, not elsewhere classified; M54.5 Low back pain; Z79.891 Long term (current) use of opiate analgesic; Z79.899 Other long term (current) drug therapy; Z88.2 Allergy status to sulfonamides; Z91.018 Allergy to other foods

== ENCOUNTER → 2017-04-15 | Outpatient (REF) | payer OTHER ==
[2017-04-15 14:19] LABS: REASON FOR REVIEW COMPREHENSIVE REVIEW
[2017-04-15 15:14] LABS: ERYTHROCYTE SEDIMENTATION RATE 41 mm/hr (0-20)
== END ==
LOC: M LAB REF 12:42
PROVIDERS: ATTEND Internal Medicine Medical Oncology
DX: D72.829 Elevated white blood cell count, unspecified (principal)

== ENCOUNTER → 2017-05-02 | Outpatient (CLI) | payer OTHER ==
--- NOTE | 2017-05-03 00:40 | ECWPNPC ---
PATIENT NAME: ULISES PEREZ : 1970 GENDER: FEMALE VISIT DATE: 05/02/2017 DISCHARGE DATE: 05/02/17 1107 VISIT LOCKED DATE TIME: PHYSICIAN: GADIEL MAGDALENO RESOURCE: GADIEL MAGDALENO REASON FOR APPOINTMENT 1. POST PROCEDURE, MEDS HISTORY OF PRESENT ILLNESS HISTORY OF PRESENT ILLNESS: HERE FOR POST PROCEDURE F/U.HAD RIGHT SIJ 04-14-17.REPORTS >50 % IMPROVEMENT IN PAIN POST PROCEDUR THAT CONTINUES TODAY.OVERALL IS DOING MUCH BETTER WITH RIGHT SIJ PAIN SINCE TWO SIJ INJECTIONS STARTED HERE IN [place] FOR SEVERE,ACUTE RIGHT SACROILLITIS.CHIEF AREA OF PAIN IS LOWER THORACIC PAIN AND HEADACHES.RATING PAIN VAS 3/10.DISCUSSED TREATMENT OPTIONS. PAIN THE PATIENT DESCRIBES THE PAIN... FALL RISK SCREENING: SCREENING :NO FALLS IN THE PAST YEAR CURRENT MEDICATIONS TAKING LISINOPRIL 40 MG TABLET ORAL ONCE DAILY, NOTES: 04/14/17 0500 TAKING AMLODIPINE BESYLATE 10 MG TABLET ORAL ONCE DAILY, NOTES: 04/14/17 0500 TAKING VITAMIN D (ERGOCALCIFEROL) 64896 UNIT CAPSULE ORAL WEEKLY, NOTES: 04/13/17 1300 TAKING REPAGLINIDE 2 MG TABLET ORAL BID, NOTES: 04/13/17 1000 TAKING TYLENOL 1 TAB 500MGS ORAL EVERY 4 HOURS NEEDED, NOTES: NONE RECENT TAKING IBUPROFEN 800 MG TABLET 1 TABLET ORALLY 3X/DAY NEEDED, NOTES: 04/13/17 1000 TAKING IBUPROFEN 400 MG TABLET ORAL THREE TIMES DAILY NEEDED, NOTES: NONE RECENT TAKING OXYCODONE-ACETAMINOPHEN 5-325 MG TABLET 1 TAB ORAL Q8H PRN MDD3, NOTES: NONE RECENT TAKING CYCLOBENZAPRINE HCL 5 MG TABLET 1 TAB ORAL THREE TIMES DAILY NEEDED, NOTES: NONE RECENT TAKING INVOKANA 300 MG TABLET 1/2 TABLET ORALLY ONCE A DAY TAKING FLONASE 50 MCG/DOSE INHALER 1 SPRAY IN EACH NOSTRIL NASALLY ONCE A DAY NOT-TAKING PANTOPRAZOLE SODIUM 40 MG TABLET DELAYED RELEASE ORAL ONCE A DAY NOT-TAKING VALIUM 5 MG TABLET 1 ORALLY 1 TAB 1HR PREPROC. MDD1, NOTES: 08/15/16 10:45 NOT-TAKING OXYCODONE HCL 5 MG TABLET 1 TABLET ORALLY 1TAB 1HR PREPROC. MDD1, NOTES: 08/15/16 10:45 NOT-TAKING GABAPENTIN 100 MG CAPSULE ORAL UNKNOWN PREDNISONE 20 MG TABLET ORAL TAPERED DOSE MEDICATION LIST REVIEWED AND RECONCILED WITH THE PATIENT PAST MEDICAL HISTORY HEADACHE HTN POLYCYSTIC OVARIES SEASONAL ALLERGIC RHINITIS / HAY FEVER SLEEP APNEA ALLERGIES SULFA (FOR ALLERGY USE ONLY): RASH GRAPEFRIUT: RASH TOMATO: RASH SURGICAL HISTORY CHOLECYSTECTOMY TUBAL LIGATION HOSPITALIZATION/MAJOR DIAGNOSTIC PROCEDURE KIDNEY STONES REVIEW OF SYSTEMS CONSTITUTIONAL: ANY CHANGE IN YOUR MEDICAL CONDITION? YES. PT STATES SHE HAS BEEN GOING TO PHYSICAL THERAPY FOR HEADACHES. PT STATES PCP (DR DE OLIVEIRA) SUSPECTS BULGING DISCS, MRI ORDERED, NOT DONE YET. . CHILLS NO . FEVER NO . INFECTION: DO YOU HAVE NEW INFECTIONS? NO . DO YOU HAVE HISTORY OF MRSA? NO . MUSCULOSKELETAL: ANY NEW PATTERNS OF PAIN OR NUMBNESS? YES. PT STATES R SIJ DONE 04/14/17. PRE PROCEDURE PAIN WAS 4-5/10. POST PROCEDURE PAIN WAS 0/10, CREEPING TO 2-3/10 . GASTROENTEROLOGY: ANY NEW CHANGE IN BOWEL CONTROL? NO . GENITOURINARY: ANY NEW CHANGE IN BLADDER CONTROL? NO . IS THERE A CHANCE YOU COULD BE ? NO . HEMATOLOGY/LYMPH: DO YOU TAKE ANY BLOOD THINNERS? (FOR EXAMPLE- COUMADIN, PLAVIX, AGGRENOX, PLATEL, PRADAXA, OR XARELTO) NO . WHEN WAS YOUR LAST DOSE? DATE: TIME: . NEUROLOGY: HAVE YOU FALLEN IN THE PAST 6 MONTHS? NO . ANY NEW EXTREMITY NUMBNESS OR WEAKNESS? NO . CARDIOLOGY: DO YOU HAVE A PACEMAKER OR DEFIBRILLATOR? NO . RESPIRATORY: HAVE YOU BEEN SICK IN THE PAST WEEK? NO . FEVER NO . FLU LIKE SYMPTOMS? NO . COUGH NO . INTEGUMENTARY: DO YOU HAVE ANY RASHES OR OPEN SORES? NO . ALLERGIC/IMMUNO: ARE YOU ALLERGIC TO SHELLFISH OR IV DYE? NO . ANY NEW ALLERGIES? NO . PSYCHIATRIC: DO YOU HAVE THOUGHTS OF HURTING YOURSELF OR SOMEONE ELSE? NO . ARE YOU ABUSED, NEGLECTED, OR IN AN UNSAFE ENVIRONMENT? NO . ENDOCRINOLOGY: ARE YOU DIABETIC? YES . OTHER: DO YOU NEED ANY PRESCRIPTIONS? NO . IF YES, PLEASE LIST: ____ . ANY NEW PROBLEMS WITH YOUR MEDICATIONS? NO . WHEN DID YOU LAST EAT? ____ . WHEN DID YOU LAST DRINK? ____ . WHAT DID YOU LAST DRINK? ____ . NAME OF PERSON DRIVING YOU HOME? ____ . DO YOU HAVE ANY OTHER QUESTIONS OR CONCERNS NO . REVIEWED BY: PROVIDER: GADIEL BERGERON . VITAL SIGNS WT 290.2 LBS, HT 65 IN, BMI 48.29 INDEX, BP 136/96 MM HG, HR 114 /MIN, RR 18 /MIN, TEMP 98.8 F, OXYGEN SAT % 96%, NA INITIALS SC 10:41. EXAMINATION GENERAL EXAMINATION: HEENT:HEAD:, NORMOCEPHALIC, EYES:, EYES NORMAL, NOSE:, NOSE CLEAR, THROAT: NORMAL. LUNGS:LUNG SOUNDS ARE CLEAR. HEART:HEART RATE REGULAR. ABDOMEN:SOFT AND NOT TENDER, NON-DISTENDED. MUSCULOSKELETAL:*. LUMBAR SACRAL SPINEMUSCLE STRENGTH TESTING5/5 BILATERAL. PALPATION: NEGATIVE FOR PAIN OVER L/S SPINE. MILD POINT TENDERNESS OVER BILAT. SACROILLIAC JOINT R>L. SKIN:NORMAL, NO RASH. NEUROLOGIC EXAM:ALERT AND ORIENTED X 3, DTRS 1-2+ IN ALL 4 EXTREMITIES, DENIES UPPER EXTREMETIES SENSORY LOSS, DENIES LOWER EXTREMETIES SENSORY LOSS. DIAGNOSTIC:MRI L/S [id number]-L4/5 AND L5/S1 BULGING DISC AND FACET ARTHROPATHY.. THORACIC SPINE/UPPER BACK: PARASPINAL MUSCLE SPASM:PRESENT BILATERALLY. MYOFASCIAL TRIGGER POINTS:BILATERAL PARASPINAL REGION INDICATIVE OF MYALGIA.. MULTIPLE TENDER SPOTS OVER TORSO INDICATIVE OF FIBROMYALGIA. ASSESSMENTS SACROILIAC JOINT PAIN - M53.3 (PRIMARY) LUMBAR FACET ARTHROPATHY - M12.88 MYALGIA - M79.1 TREATMENT SACROILIAC JOINT PAIN START CYMBALTA CAPSULE DELAYED RELEASE PARTICLES, 30 MG, 1 CAPSULE, ORALLY, DAILY, 30 DAY(S), 30 CAPSULE, REFILLS 2 PROCEDURE CODES FA211 ESTABILISHED PATIENT [facility] CHARGE DISPOSITION & COMMUNICATION FOLLOW UP 6 WEEKS (REASON: MEDICATION F/U CYMBALTA) ELECTRONICALLY SIGNED BY RUBIO MARTINEZ ON 05/02/2017 AT 11:01 AM EDT DISCLAIMER : THIS IS A VISIT SUMMARY EXTRACTED FROM THE [employer] CHART. IT IS NOT A COPY OF THE [employer] PROGRESS NOTE. MTDD
== END ==
LOC: M PAIN 10:00
PROVIDERS: ATTEND Nurse Practitioner Family
DX: M53.3 Sacrococcygeal disorders, not elsewhere classified (principal); M12.88 Other specific arthropathies, not elsewhere classified, other specified site; M79.1 Myalgia; R51 Headache; E11.9 Type 2 diabetes mellitus without complications; I10 Essential (primary) hypertension; J30.89 Other allergic rhinitis; G47.30 Sleep apnea, unspecified; Z79.891 Long term (current) use of opiate analgesic; Z79.899 Other long term (current) drug therapy; Z79.1 Long term (current) use of non-steroidal anti-inflammatories (NSAID); Z88.2 Allergy status to sulfonamides; Z91.018 Allergy to other foods

== ENCOUNTER → 2017-06-13 | Outpatient (CLI) | payer OTHER ==
--- NOTE | 2017-06-14 01:13 | ECWPNPC ---
PATIENT NAME: ULISES PEREZ : 1970 GENDER: FEMALE VISIT DATE: 06/13/2017 DISCHARGE DATE: 06/13/17 1035 VISIT LOCKED DATE TIME: PHYSICIAN: GADIEL MAGDALENO RESOURCE: GADIEL MAGDALENO REASON FOR APPOINTMENT 1. MEDICATION F/U CYMBALTA HISTORY OF PRESENT ILLNESS HISTORY OF PRESENT ILLNESS: HERE FOR F/U OF CHRONIC LBP.HAD RSIJ ON 04-14-17.REPORTED GREATER THAN 50% IMPROVEMENT.PAIN CONTINUES TO BE A BIT BETTER.RATING PAIN VAS 4/10.STARTED ON CYMBALTA 30MG DAILY AT LAST VISIT.STATES THIS IS HELPING.DENIES SIDE EFFECTS. FALL RISK SCREENING: SCREENING :NO FALLS IN THE PAST YEAR CURRENT MEDICATIONS TAKING LISINOPRIL 40 MG TABLET ORAL ONCE DAILY TAKING AMLODIPINE BESYLATE 10 MG TABLET ORAL ONCE DAILY TAKING VITAMIN D (ERGOCALCIFEROL) 36845 UNIT CAPSULE ORAL WEEKLY TAKING TYLENOL 1 TAB 500MGS ORAL EVERY 4 HOURS NEEDED TAKING IBUPROFEN 800 MG TABLET 1 TABLET ORALLY 3X/DAY NEEDED TAKING IBUPROFEN 400 MG TABLET ORAL THREE TIMES DAILY NEEDED TAKING OXYCODONE-ACETAMINOPHEN 5-325 MG TABLET 1 TAB ORAL Q8H PRN MDD3 TAKING CYCLOBENZAPRINE HCL 5 MG TABLET 1 TAB ORAL THREE TIMES DAILY NEEDED TAKING FLONASE 50 MCG/DOSE INHALER 1 SPRAY IN EACH NOSTRIL NASALLY ONCE A DAY TAKING CYMBALTA 30 MG CAPSULE DELAYED RELEASE PARTICLES 1 CAPSULE ORALLY DAILY TAKING TANZEUM 30 MG PEN-INJECTOR 4 UNITS SUBCUTANEOUS WEEKLY TAKING STARLIX 120 MG TABLET 1 TABLET BEFORE MEALS ORALLY THREE TIMES A DAY NOT-TAKING REPAGLINIDE 2 MG TABLET ORAL BID NOT-TAKING INVOKANA 300 MG TABLET 1/2 TABLET ORALLY ONCE A DAY NOT-TAKING PANTOPRAZOLE SODIUM 40 MG TABLET DELAYED RELEASE ORAL ONCE A DAY NOT-TAKING VALIUM 5 MG TABLET 1 ORALLY 1 TAB 1HR PREPROC. MDD1, NOTES: 08/15/16 10:45 NOT-TAKING OXYCODONE HCL 5 MG TABLET 1 TABLET ORALLY 1TAB 1HR PREPROC. MDD1, NOTES: 08/15/16 10:45 NOT-TAKING GABAPENTIN 100 MG CAPSULE ORAL UNKNOWN PREDNISONE 20 MG TABLET ORAL TAPERED DOSE MEDICATION LIST REVIEWED AND RECONCILED WITH THE PATIENT PAST MEDICAL HISTORY HEADACHE HTN POLYCYSTIC OVARIES SEASONAL ALLERGIC RHINITIS / HAY FEVER SLEEP APNEA ALLERGIES SULFA (FOR ALLERGY USE ONLY): RASH GRAPEFRIUT: RASH TOMATO: RASH SURGICAL HISTORY CHOLECYSTECTOMY TUBAL LIGATION HOSPITALIZATION/MAJOR DIAGNOSTIC PROCEDURE KIDNEY STONES REVIEW OF SYSTEMS REVIEWED BY: PROVIDER: GADIEL BERGERON . CONSTITUTIONAL: ANY CHANGE IN YOUR MEDICAL CONDITION? NO . CHILLS NO . FEVER NO . INFECTION: DO YOU HAVE NEW INFECTIONS? NO . DO YOU HAVE HISTORY OF MRSA? NO . MUSCULOSKELETAL: ANY NEW PATTERNS OF PAIN OR NUMBNESS? NO . GASTROENTEROLOGY: ANY NEW CHANGE IN BOWEL CONTROL? NO . GENITOURINARY: ANY NEW CHANGE IN BLADDER CONTROL? NO . IS THERE A CHANCE YOU COULD BE ? NO . HEMATOLOGY/LYMPH: DO YOU TAKE ANY BLOOD THINNERS? (FOR EXAMPLE- COUMADIN, PLAVIX, AGGRENOX, PLATEL, PRADAXA, OR XARELTO) NO . WHEN WAS YOUR LAST DOSE? DATE: TIME: . NEUROLOGY: HAVE YOU FALLEN IN THE PAST 6 MONTHS? NO . ANY NEW EXTREMITY NUMBNESS OR WEAKNESS? NO . CARDIOLOGY: DO YOU HAVE A PACEMAKER OR DEFIBRILLATOR? NO . RESPIRATORY: HAVE YOU BEEN SICK IN THE PAST WEEK? NO . FEVER NO . FLU LIKE SYMPTOMS? NO . COUGH NO . INTEGUMENTARY: DO YOU HAVE ANY RASHES OR OPEN SORES? NO . ALLERGIC/IMMUNO: ARE YOU ALLERGIC TO SHELLFISH OR IV DYE? NO . ANY NEW ALLERGIES? NO . PSYCHIATRIC: DO YOU HAVE THOUGHTS OF HURTING YOURSELF OR SOMEONE ELSE? NO . ARE YOU ABUSED, NEGLECTED, OR IN AN UNSAFE ENVIRONMENT? NO . ENDOCRINOLOGY: ARE YOU DIABETIC? YES . OTHER: DO YOU NEED ANY PRESCRIPTIONS? YES, CYMBALTA . IF YES, PLEASE LIST: ____ . ANY NEW PROBLEMS WITH YOUR MEDICATIONS? NO . WHEN DID YOU LAST EAT? ____ . WHEN DID YOU LAST DRINK? ____ . WHAT DID YOU LAST DRINK? ____ . NAME OF PERSON DRIVING YOU HOME? ____ . DO YOU HAVE ANY OTHER QUESTIONS OR CONCERNS NO . VITAL SIGNS WT 289 LBS, HT 65 IN, BMI 48.09 INDEX, BP 146/78 MM HG, HR 113 /MIN, RR 16 /MIN, TEMP 97.9 F, OXYGEN SAT % 96, SAFE IN ENV? (Y/N) Y, REVIEWED BY: EM. EXAMINATION GENERAL EXAMINATION: HEENT:HEAD:, NORMOCEPHALIC, EYES:, EYES NORMAL, NOSE:, NOSE CLEAR, THROAT: NORMAL. LUNGS:LUNG SOUNDS ARE CLEAR. HEART:HEART RATE REGULAR. ABDOMEN:SOFT AND NOT TENDER, NON-DISTENDED. MUSCULOSKELETAL:*. LUMBAR SACRAL SPINEMUSCLE STRENGTH TESTING5/5 BILATERAL. PALPATION: NEGATIVE FOR PAIN OVER L/S SPINE. MILD POINT TENDERNESS OVER BILAT. SACROILLIAC JOINT R>L. SKIN:NORMAL, NO RASH. NEUROLOGIC EXAM:ALERT AND ORIENTED X 3, DTRS 1-2+ IN ALL 4 EXTREMITIES, DENIES UPPER EXTREMETIES SENSORY LOSS, DENIES LOWER EXTREMETIES SENSORY LOSS. DIAGNOSTIC:MRI L/S [id number]-L4/5 AND L5/S1 BULGING DISC AND FACET ARTHROPATHY.. ASSESSMENTS SACROILIAC JOINT PAIN - M53.3 (PRIMARY) LUMBAR FACET ARTHROPATHY - M12.88 MYALGIA - M79.1 TREATMENT SACROILIAC JOINT PAIN CONTINUE CYMBALTA CAPSULE DELAYED RELEASE PARTICLES, 30 MG, 1 CAPSULE, ORALLY, DAILY PROCEDURE CODES FA211 ESTABILISHED PATIENT [facility] CHARGE DISPOSITION & COMMUNICATION FOLLOW UP 4 WEEKS ELECTRONICALLY SIGNED BY RUBIO MARTINEZ ON 06/13/2017 AT 02:45 PM EDT DISCLAIMER : THIS IS A VISIT SUMMARY EXTRACTED FROM THE [employer] CHART. IT IS NOT A COPY OF THE [employer] PROGRESS NOTE. [place]LLEY
== END ==
LOC: M PAIN 10:00
PROVIDERS: ATTEND Nurse Practitioner Family
DX: M53.3 Sacrococcygeal disorders, not elsewhere classified (principal); M12.88 Other specific arthropathies, not elsewhere classified, other specified site; M79.1 Myalgia; G89.29 Other chronic pain; Z79.891 Long term (current) use of opiate analgesic; Z79.899 Other long term (current) drug therapy; Z88.2 Allergy status to sulfonamides; Z91.018 Allergy to other foods

== ENCOUNTER → 2017-08-14 | Outpatient (CLI) | payer OTHER ==
--- NOTE | 2017-08-24 23:34 | ECWPNPC ---
PATIENT NAME: ULISES PEREZ : 1970 GENDER: FEMALE VISIT DATE: 08/14/2017 DISCHARGE DATE: 08/14/17 1224 VISIT LOCKED DATE TIME: PHYSICIAN: GADIEL MAGDALENO RESOURCE: GADIEL MAGDALENO REASON FOR APPOINTMENT 1. BACK HISTORY OF PRESENT ILLNESS HISTORY OF PRESENT ILLNESS: HERE FOR F/U OF GENERALIZED BACK PAIN AND ACHINESS.HAS HAD AN INCREASE IN GENERALIZED ACHINESS.FOLLOWS CLOSELY WITH DR. DE OLIVEIRA,PRIMARY CARE.RATING PAIN VAS 4/10.CURRENTLY ON CYMBALTA 30MG DAILY AND FINDS THIS SOMEWHAT HELPFUL.DISCUSSED MEDICATION AND TREATMENT OPTIONS.CHIEF AREA OF PAIN IS LOW BACK AND RIGHT BUTTOCKS. PAIN THE PATIENT DESCRIBES THE PAIN... FALL RISK SCREENING: SCREENING :NO FALLS IN THE PAST YEAR CURRENT MEDICATIONS TAKING LISINOPRIL 40 MG TABLET ORAL ONCE DAILY TAKING AMLODIPINE BESYLATE 10 MG TABLET ORAL ONCE DAILY TAKING VITAMIN D (ERGOCALCIFEROL) 40919 UNIT CAPSULE ORAL WEEKLY TAKING IBUPROFEN 800 MG TABLET 1 TABLET ORALLY 3X/DAY NEEDED TAKING CYCLOBENZAPRINE HCL 5 MG TABLET 1 TAB ORAL THREE TIMES DAILY NEEDED TAKING FLONASE 50 MCG/DOSE INHALER 1 SPRAY IN EACH NOSTRIL NASALLY ONCE A DAY TAKING TANZEUM 30 MG PEN-INJECTOR 4 UNITS SUBCUTANEOUS WEEKLY TAKING STARLIX 120 MG TABLET 1 TABLET BEFORE MEALS ORALLY THREE TIMES A DAY TAKING CYMBALTA 30 MG CAPSULE DELAYED RELEASE PARTICLES 1 CAPSULE ORALLY DAILY TAKING METOPROLOL SUCCINATE ER 50 MG TABLET EXTENDED RELEASE 24 HOUR 1 TABLET ORALLY ONCE A DAY NOT-TAKING TYLENOL 1 TAB 500MGS ORAL EVERY 4 HOURS NEEDED NOT-TAKING IBUPROFEN 400 MG TABLET ORAL THREE TIMES DAILY NEEDED NOT-TAKING OXYCODONE-ACETAMINOPHEN 5-325 MG TABLET 1 TAB ORAL Q8H PRN MDD3 NOT-TAKING REPAGLINIDE 2 MG TABLET ORAL BID NOT-TAKING INVOKANA 300 MG TABLET 1/2 TABLET ORALLY ONCE A DAY NOT-TAKING PANTOPRAZOLE SODIUM 40 MG TABLET DELAYED RELEASE ORAL ONCE A DAY NOT-TAKING VALIUM 5 MG TABLET 1 ORALLY 1 TAB 1HR PREPROC. MDD1, NOTES: 08/15/16 10:45 NOT-TAKING OXYCODONE HCL 5 MG TABLET 1 TABLET ORALLY 1TAB 1HR PREPROC. MDD1, NOTES: 08/15/16 10:45 NOT-TAKING GABAPENTIN 100 MG CAPSULE ORAL UNKNOWN PREDNISONE 20 MG TABLET ORAL TAPERED DOSE MEDICATION LIST REVIEWED AND RECONCILED WITH THE PATIENT PAST MEDICAL HISTORY HEADACHE HTN POLYCYSTIC OVARIES SEASONAL ALLERGIC RHINITIS / HAY FEVER SLEEP APNEA ALLERGIES SULFA (FOR ALLERGY USE ONLY): RASH GRAPEFRIUT: RASH TOMATO: RASH REVIEW OF SYSTEMS REVIEWED BY: PROVIDER: GADIEL BERGERON . CONSTITUTIONAL: ANY CHANGE IN YOUR MEDICAL CONDITION? CHECKING INTO HIGH HEART RATE / ON MEDS/ MD DOING FU . CHILLS NO . FEVER NO . INFECTION: DO YOU HAVE NEW INFECTIONS? NO . DO YOU HAVE HISTORY OF MRSA? NO . MUSCULOSKELETAL: ANY NEW PATTERNS OF PAIN OR NUMBNESS? NO . GASTROENTEROLOGY: ANY NEW CHANGE IN BOWEL CONTROL? NO . GENITOURINARY: ANY NEW CHANGE IN BLADDER CONTROL? NO . IS THERE A CHANCE YOU COULD BE ? NO . HEMATOLOGY/LYMPH: DO YOU TAKE ANY BLOOD THINNERS? (FOR EXAMPLE- COUMADIN, PLAVIX, AGGRENOX, PLATEL, PRADAXA, OR XARELTO) NO . WHEN WAS YOUR LAST DOSE? DATE: TIME: . NEUROLOGY: HAVE YOU FALLEN IN THE PAST 6 MONTHS? NO . ANY NEW EXTREMITY NUMBNESS OR WEAKNESS? NO . CARDIOLOGY: DO YOU HAVE A PACEMAKER OR DEFIBRILLATOR? NO . RESPIRATORY: HAVE YOU BEEN SICK IN THE PAST WEEK? NO . FEVER NO . FLU LIKE SYMPTOMS? NO . COUGH NO . INTEGUMENTARY: DO YOU HAVE ANY RASHES OR OPEN SORES? NO . ALLERGIC/IMMUNO: ARE YOU ALLERGIC TO SHELLFISH OR IV DYE? NO . ANY NEW ALLERGIES? NO . PSYCHIATRIC: DO YOU HAVE THOUGHTS OF HURTING YOURSELF OR SOMEONE ELSE? NO . ARE YOU ABUSED, NEGLECTED, OR IN AN UNSAFE ENVIRONMENT? NO . ENDOCRINOLOGY: ARE YOU DIABETIC? YES . OTHER: DO YOU NEED ANY PRESCRIPTIONS? YES . IF YES, PLEASE LIST: ____CYMBALTA . ANY NEW PROBLEMS WITH YOUR MEDICATIONS? NO . WHEN DID YOU LAST EAT? ____ . WHEN DID YOU LAST DRINK? ____ . WHAT DID YOU LAST DRINK? ____ . NAME OF PERSON DRIVING YOU HOME? ____ . DO YOU HAVE ANY OTHER QUESTIONS OR CONCERNS DO I HAVE FIBROMYALGIA?? YES?? NO?? . VITAL SIGNS WT 280 LBS, HT 65 IN, BMI 46.59 INDEX, BP 118/80 MM HG, HR 92 /MIN, RR 18 /MIN, TEMP 97.7 F, OXYGEN SAT % 96, REVIEWED BY: NL. EXAMINATION GENERAL EXAMINATION: HEENT:HEAD:, NORMOCEPHALIC, EYES:, EYES NORMAL, NOSE:, NOSE CLEAR, THROAT: NORMAL. LUNGS:LUNG SOUNDS ARE CLEAR. HEART:HEART RATE REGULAR. ABDOMEN:SOFT AND NOT TENDER, NON-DISTENDED. MUSCULOSKELETAL:*MULTIPLE AREAS OF TENDER SPOTS UPPER AND LOWER TORSO INDICATIVE OF FIBROMYALGIA. LUMBAR SACRAL SPINEMUSCLE STRENGTH TESTING5/5 BILATERAL. PALPATION: NEGATIVE FOR PAIN OVER L/S SPINE. MILD POINT TENDERNESS OVER BILAT. SACROILLIAC JOINT R>L. SKIN:NORMAL, NO RASH. NEUROLOGIC EXAM:ALERT AND ORIENTED X 3, DTRS 1-2+ IN ALL 4 EXTREMITIES, DENIES UPPER EXTREMETIES SENSORY LOSS, DENIES LOWER EXTREMETIES SENSORY LOSS. DIAGNOSTIC:MRI L/S [id number] AND L5/S1 BULGING DISC AND FACET ARTHROPATHY.. ASSESSMENTS LUMBAR FACET ARTHROPATHY - M12.88 (PRIMARY) MYALGIA - M79.1 TREATMENT LUMBAR FACET ARTHROPATHY INCREASE CYMBALTA CAPSULE DELAYED RELEASE PARTICLES, 60 MG, 1 CAPSULE, ORALLY, DAILY, 30 DAY(S), 30 CAPSULE, REFILLS 2 NOTES: PATIENT WAS ADVISED TO START A WALKING PROGRAM TO STRENGTHEN LUMBAR PARASPINAL MUSCLES AND IMPROVE MOBILITY. THEY WERE ADVISED THAT THIS WILL IMPROVE WEIGHT LOSS AND ALSO DEPRESSION/FIBROMYALGIA SYMPTOMS. ADVISED TO WALK 10 MINUTES EVERY OTHER DAY ON A FLAT SURFACE. EMPHASIZED THE IMPORTANCE OF DOING THIS CONSISTANTLY AND NOT SPORATICALLY TO AVOID INJURY. STRONG ADVISED NOT TO DO MORE THAN 10 MINUTES EVERY OTHER DAY FOR THE FIRST 4 WEEKS. PROCEDURE CODES FA211 ESTABILISHED PATIENT [facility] CHARGE DISPOSITION & COMMUNICATION FOLLOW UP 6 WEEKS ELECTRONICALLY SIGNED BY RUBIO MARTINEZ ON 08/24/2017 AT 08:36 PM EDT DISCLAIMER : THIS IS A VISIT SUMMARY EXTRACTED FROM THE [employer] CHART. IT IS NOT A COPY OF THE [employer] PROGRESS NOTE. [place]
== END ==
LOC: M PAIN 11:15
PROVIDERS: ATTEND Nurse Practitioner Family
DX: M12.88 Other specific arthropathies, not elsewhere classified, other specified site (principal); M79.1 Myalgia; Z79.899 Other long term (current) drug therapy; Z88.2 Allergy status to sulfonamides; Z91.018 Allergy to other foods

== ENCOUNTER → 2017-10-28 | Outpatient (CLI) | payer OTHER ==
--- NOTE | 2017-10-29 00:09 | ECWPNPC ---
PATIENT NAME: ULISES PEREZ : 1970 GENDER: FEMALE VISIT DATE: 10/28/2017 DISCHARGE DATE: 10/28/17 1547 VISIT LOCKED DATE TIME: PHYSICIAN: GADIEL MAGDALENO RESOURCE: GADIEL MAGDALENO REASON FOR APPOINTMENT 1. BACK HISTORY OF PRESENT ILLNESS HISTORY OF PRESENT ILLNESS: HERE FOR F/U OF GENERALIZED BACK PAIN AND ACHINESS.HAS HAD AN INCREASE IN GENERALIZED ACHINESS OVER THE PAST FEW MONTHS.CYMBALTA WAS RAISED TO 60MG DAILY AT LAST VISIT.REPORTING SOME IMPROVEMENT WITH UPPER BODY PAIN AFTER INCREASE OF CYMBALTA.RATING PAIN VAS 4/10.DISCUSSED MEDICATION AND TREATMENT OPTIONS.CHIEF AREA OF PAIN IS LOW BACK AND RIGHT BUTTOCKS. PAIN THE PATIENT DESCRIBES THE PAIN... THE PATIENT DESCRIBES THE PAIN... FALL RISK SCREENING: SCREENING :NO FALLS IN THE PAST YEAR CURRENT MEDICATIONS TAKING LISINOPRIL 40 MG TABLET ORAL ONCE DAILY TAKING AMLODIPINE BESYLATE 10 MG TABLET ORAL ONCE DAILY TAKING VITAMIN D (ERGOCALCIFEROL) 17657 UNIT CAPSULE ORAL WEEKLY TAKING IBUPROFEN 800 MG TABLET 1 TABLET ORALLY 3X/DAY NEEDED TAKING CYCLOBENZAPRINE HCL 5 MG TABLET 1 TAB ORAL THREE TIMES DAILY NEEDED TAKING FLONASE 50 MCG/DOSE INHALER 1 SPRAY IN EACH NOSTRIL NASALLY ONCE A DAY TAKING TANZEUM 30 MG PEN-INJECTOR 4 UNITS SUBCUTANEOUS WEEKLY TAKING STARLIX 120 MG TABLET 1 TABLET BEFORE MEALS ORALLY THREE TIMES A DAY TAKING METOPROLOL SUCCINATE ER 50 MG TABLET EXTENDED RELEASE 24 HOUR 1 TABLET ORALLY ONCE A DAY TAKING CYMBALTA 60 MG CAPSULE DELAYED RELEASE PARTICLES 1 CAPSULE ORALLY DAILY NOT-TAKING TYLENOL 1 TAB 500MGS ORAL EVERY 4 HOURS NEEDED NOT-TAKING IBUPROFEN 400 MG TABLET ORAL THREE TIMES DAILY NEEDED NOT-TAKING OXYCODONE-ACETAMINOPHEN 5-325 MG TABLET 1 TAB ORAL Q8H PRN MDD3 NOT-TAKING REPAGLINIDE 2 MG TABLET ORAL BID NOT-TAKING INVOKANA 300 MG TABLET 1/2 TABLET ORALLY ONCE A DAY NOT-TAKING PANTOPRAZOLE SODIUM 40 MG TABLET DELAYED RELEASE ORAL ONCE A DAY NOT-TAKING VALIUM 5 MG TABLET 1 ORALLY 1 TAB 1HR PREPROC. MDD1, NOTES: 08/15/16 10:45 NOT-TAKING OXYCODONE HCL 5 MG TABLET 1 TABLET ORALLY 1TAB 1HR PREPROC. MDD1, NOTES: 08/15/16 10:45 NOT-TAKING GABAPENTIN 100 MG CAPSULE ORAL UNKNOWN PREDNISONE 20 MG TABLET ORAL TAPERED DOSE MEDICATION LIST REVIEWED AND RECONCILED WITH THE PATIENT PAST MEDICAL HISTORY HEADACHE HTN POLYCYSTIC OVARIES SEASONAL ALLERGIC RHINITIS / HAY FEVER SLEEP APNEA ALLERGIES SULFA (FOR ALLERGY USE ONLY): RASH GRAPEFRIUT: RASH TOMATO: RASH SURGICAL HISTORY CHOLECYSTECTOMY TUBAL LIGATION SOCIAL HISTORY GENERAL: TOBACCO USE ARE YOU A:NONSMOKER JEW [id number] RESTORATIONISM LANGUAGE LANGUAGES SPOKEN:PUERTO RICAN EDUCATION LEVEL OF EDUCATION:FINISHED COLLEGE LEARNING BARRIERS / SPECIAL NEEDS BARRIERS TO LEARNING?NO HEARING IMPAIRED?NO VISION IMPAIRED?YES :CORRECTIVE LENSES COGNITIVELY IMPAIRED?NO READINESS TO LEARN?YES LEARNING PREFERENCES?YES :BOOKLETS, HANDOUTS SPECIAL DEVICES?NO PAIN CLINIC PFS, CLERGY, PUBLIC HEALTH REFERRALS PFS REFERRAL NEEDED?NO CLERGY REFERRAL NEEDED?NO PUBLIC HEALTH REFERRAL NEEDED?NO WAS THE PROVIDER NOTIFIED OF ANY PERTINENT INFO?NO HAS THE PATIENT BEEN EDUCATED REGARDING HIS/HER PLAN OF CARE?YES HAS THE PATIENT BEEN EDUCATED REGARDING PAIN, THE RISK FOR PAIN, THE IMPORTANCE OF EFFECTIVE PAIN MANAGEMENT, AND THE PAIN ASSESSMENT PROCESS?YES PATIENT: ____. ADVANCE DIRECTIVES HEALTH CARE PROXY?YES DO YOU HAVE A DNR?NO LIVING WILL?NO POWER OF BLAST FURNACE KEEPER HELPER?NO HOSPITALIZATION/MAJOR DIAGNOSTIC PROCEDURE KIDNEY STONES REVIEW OF SYSTEMS REVIEWED BY: PROVIDER: GADIEL BERGERON . CONSTITUTIONAL: ANY CHANGE IN YOUR MEDICAL CONDITION? NO . CHILLS NO . FEVER NO . INFECTION: DO YOU HAVE NEW INFECTIONS? NO . DO YOU HAVE HISTORY OF MRSA? NO . MUSCULOSKELETAL: ANY NEW PATTERNS OF PAIN OR NUMBNESS? NO . GASTROENTEROLOGY: ANY NEW CHANGE IN BOWEL CONTROL? NO . GENITOURINARY: ANY NEW CHANGE IN BLADDER CONTROL? NO . IS THERE A CHANCE YOU COULD BE ? NO . HEMATOLOGY/LYMPH: DO YOU TAKE ANY BLOOD THINNERS? (FOR EXAMPLE- COUMADIN, PLAVIX, AGGRENOX, PLATEL, PRADAXA, OR XARELTO) NO . WHEN WAS YOUR LAST DOSE? DATE: TIME: . NEUROLOGY: HAVE YOU FALLEN IN THE PAST 6 MONTHS? NO . ANY NEW EXTREMITY NUMBNESS OR WEAKNESS? NO . CARDIOLOGY: DO YOU HAVE A PACEMAKER OR DEFIBRILLATOR? NO . RESPIRATORY: HAVE YOU BEEN SICK IN THE PAST WEEK? YES . FEVER NO . FLU LIKE SYMPTOMS? NO . COUGH NO . INTEGUMENTARY: DO YOU HAVE ANY RASHES OR OPEN SORES? NO . ALLERGIC/IMMUNO: ARE YOU ALLERGIC TO SHELLFISH OR IV DYE? NO . ANY NEW ALLERGIES? NO . PSYCHIATRIC: DO YOU HAVE THOUGHTS OF HURTING YOURSELF OR SOMEONE ELSE? NO . ARE YOU ABUSED, NEGLECTED, OR IN AN UNSAFE ENVIRONMENT? NO . ENDOCRINOLOGY: ARE YOU DIABETIC? YES . OTHER: DO YOU NEED ANY PRESCRIPTIONS? YES, CYMBALTA . IF YES, PLEASE LIST: ____ . ANY NEW PROBLEMS WITH YOUR MEDICATIONS? NO . WHEN DID YOU LAST EAT? ____ . WHEN DID YOU LAST DRINK? ____ . WHAT DID YOU LAST DRINK? ____ . NAME OF PERSON DRIVING YOU HOME? ____ . DO YOU HAVE ANY OTHER QUESTIONS OR CONCERNS NO . VITAL SIGNS WT 278.0 LBS, HT 65 IN, BMI 46.26 INDEX, BP 145/89 MM HG, HR 115 /MIN, RR 18 /MIN, TEMP 97.0 F, OXYGEN SAT % 98%, NA INITIALS TL 1424, REVIEWED BY: EMELEVATED PULSE 115- TL. EXAMINATION GENERAL EXAMINATION: HEENT:HEAD:, NORMOCEPHALIC, EYES:, EYES NORMAL, NOSE:, NOSE CLEAR, THROAT: NORMAL. LUNGS:LUNG SOUNDS ARE CLEAR. HEART:HEART RATE REGULAR. ABDOMEN:SOFT AND NOT TENDER, NON-DISTENDED. MUSCULOSKELETAL:*MULTIPLE AREAS OF TENDER SPOTS UPPER AND LOWER TORSO INDICATIVE OF FIBROMYALGIA. LUMBAR SACRAL SPINEMUSCLE STRENGTH TESTING5/5 BILATERAL. PALPATION: NEGATIVE FOR PAIN OVER L/S SPINE. MILD POINT TENDERNESS OVER BILAT. SACROILLIAC JOINT R>L. SKIN:NORMAL, NO RASH. NEUROLOGIC EXAM:ALERT AND ORIENTED X 3, DTRS 1-2+ IN ALL 4 EXTREMITIES, DENIES UPPER EXTREMETIES SENSORY LOSS, DENIES LOWER EXTREMETIES SENSORY LOSS. DIAGNOSTIC:MRI L/S [id number] AND L5/S1 BULGING DISC AND FACET ARTHROPATHY.. ASSESSMENTS SACROILIAC JOINT PAIN - M53.3 (PRIMARY) LUMBAR FACET ARTHROPATHY - M12.88 MYALGIA - M79.1 TREATMENT SACROILIAC JOINT PAIN CONTINUE CYMBALTA CAPSULE DELAYED RELEASE PARTICLES, 60 MG, 1 CAPSULE, ORALLY, DAILY, 30 DAY(S), 30 CAPSULE, REFILLS 2 NOTES: RIGHT SIJ. PROCEDURE CODES FA211 ESTABILISHED PATIENT [facility] FACILITY CHARGE DISPOSITION & COMMUNICATION FOLLOW UP 2WK POST (REASON: RIGHT SIJ) ELECTRONICALLY SIGNED BY RUBIO MARTINEZ ON 10/28/2017 AT 03:42 PM EST DISCLAIMER : THIS IS A VISIT SUMMARY EXTRACTED FROM THE [employer] CHART. IT IS NOT A COPY OF THE [employer] PROGRESS NOTE. SHELLEY
== END ==
LOC: M PAIN 14:15
PROVIDERS: ATTEND Nurse Practitioner Family
DX: G89.29 Other chronic pain (principal); M53.3 Sacrococcygeal disorders, not elsewhere classified; M12.88 Other specific arthropathies, not elsewhere classified, other specified site; M79.1 Myalgia; R51 Headache; I10 Essential (primary) hypertension; E28.2 Polycystic ovarian syndrome; J30.2 Other seasonal allergic rhinitis; G47.30 Sleep apnea, unspecified; Z79.899 Other long term (current) drug therapy; Z88.2 Allergy status to sulfonamides; Z91.018 Allergy to other foods; Z87.442 Personal history of urinary calculi

== ENCOUNTER → 2017-12-10 | Outpatient (CLI) | payer OTHER ==
[~2017-12-10] MED LIST changes: +BUPIVACAINE HCL 0.25% 30 ML VIAL As Ordered; -BUPIVACAINE HCL 0.25% 30 ML VIAL As Ordered ONE; +ISOVUE-M 300 61% 15ML VIAL (Q9967) As Ordered; -ISOVUE-M 300 61% 15ML VIAL (Q9967) As Ordered ONE; +LIDOCAINE 1% SDV INJ 30 ML VIAL As Ordered; -LIDOCAINE 1% SDV INJ 30 ML VIAL As Ordered ONE; +TRIAMCINOLONE ACETONIDE SUSP 40 MG/ML VIAL (J3301) As Ordered; -TRIAMCINOLONE ACETONIDE SUSP 40 MG/ML VIAL (J3301) As Ordered ONE; +diazePAM 5 MG TAB As Ordered; -diazePAM 5 MG TAB As Ordered ONE; +oxyCODONE 5MG TAB As Ordered; -oxyCODONE 5MG TAB As Ordered ONE
== END ==
LOC: M PAIN 11:00
DX: G89.29 Other chronic pain (principal); M46.1 Sacroiliitis, not elsewhere classified; M53.88 Other specified dorsopathies, sacral and sacrococcygeal region; E11.9 Type 2 diabetes mellitus without complications; R51 Headache; I10 Essential (primary) hypertension; J30.2 Other seasonal allergic rhinitis; G47.30 Sleep apnea, unspecified; Z88.2 Allergy status to sulfonamides; Z91.018 Allergy to other foods; Z79.891 Long term (current) use of opiate analgesic; Z79.84 Long term (current) use of oral hypoglycemic drugs; Z79.899 Other long term (current) drug therapy
CPT/HCPCS: J3301

== ENCOUNTER → 2018-08-12 | Outpatient (CLI) | payer OTHER | LOC: M PAIN 10:15 | DX: M53.3 Sacrococcygeal disorders, not elsewhere classified (principal); M12.88 Other specific arthropathies, not elsewhere classified, other specified site; M79.7 Fibromyalgia; I10 Essential (primary) hypertension; J30.2 Other seasonal allergic rhinitis; G47.30 Sleep apnea, unspecified; E11.9 Type 2 diabetes mellitus without complications; E28.2 Polycystic ovarian syndrome; Z79.899 Other long term (current) drug therapy; Z88.2 Allergy status to sulfonamides; Z91.018 Allergy to other foods | CPT/HCPCS: G0463 ==

== ENCOUNTER → 2018-09-09 | Outpatient (CLI) | payer OTHER | LOC: M PAIN 13:45 | DX: M46.1 Sacroiliitis, not elsewhere classified (principal); I10 Essential (primary) hypertension; J30.1 Allergic rhinitis due to pollen; G47.30 Sleep apnea, unspecified; Z88.2 Allergy status to sulfonamides; Z91.018 Allergy to other foods; E28.2 Polycystic ovarian syndrome; Z79.899 Other long term (current) drug therapy | CPT/HCPCS: J3301 ==

== ENCOUNTER → 2018-10-02 | Outpatient (CLI) | payer OTHER | LOC: M PAIN 08:45 | DX: M53.3 Sacrococcygeal disorders, not elsewhere classified (principal); M12.88 Other specific arthropathies, not elsewhere classified, other specified site; M79.7 Fibromyalgia; I10 Essential (primary) hypertension; J30.2 Other seasonal allergic rhinitis; G47.30 Sleep apnea, unspecified; Z79.899 Other long term (current) drug therapy; Z88.2 Allergy status to sulfonamides; Z91.018 Allergy to other foods | CPT/HCPCS: G0463 ==

== ENCOUNTER → 2019-01-01 | Outpatient (CLI) | payer BC ==
[~2019-01-01] MED LIST changes: -BUPIVACAINE HCL 0.25% 30 ML VIAL As Ordered; +DULO1CAP3 PO; -ISOVUE-M 300 61% 15ML VIAL (Q9967) As Ordered; -LIDOCAINE 1% SDV INJ 30 ML VIAL As Ordered; +LISI40TA PO; +METO1TAB33 PO; +OMEP20CA3 PO; +TANZ1INJ2 SC; -TRIAMCINOLONE ACETONIDE SUSP 40 MG/ML VIAL (J3301) As Ordered; -diazePAM 5 MG TAB As Ordered; -oxyCODONE 5MG TAB As Ordered
--- NOTE | 2019-01-11 00:38 | ECWPNPC ---
PATIENT NAME: ULISES PEREZ : 1970 GENDER: FEMALE VISIT DATE: 01/01/2019 DISCHARGE DATE: 01/01/19 1120 VISIT LOCKED DATE TIME: PHYSICIAN: GADIEL MAGDALENO RESOURCE: GADIEL MAGDALENO REASON FOR APPOINTMENT 1. HIPS HISTORY OF PRESENT ILLNESS HISTORY OF PRESENT ILLNESS: HERE FOR F/U OF CHRONIC LOW BACK PAIN.CONTINUES TO DO FAIRLY WELL POST SIJ IN AUGUST.RATING PAIN 3/10 VAS.DESCRIBES PAIN CONSTANT,ACHING AND SORE. PAIN THE PATIENT DESCRIBES THE PAIN... FALL RISK SCREENING: SCREENING :NO FALLS IN THE PAST YEAR CURRENT MEDICATIONS TAKING LISINOPRIL 40 MG TABLET ORAL ONCE DAILY TAKING IBUPROFEN 800 MG TABLET 1 TABLET ORALLY 3X/DAY NEEDED TAKING CYCLOBENZAPRINE HCL 5 MG TABLET 1 TAB ORAL THREE TIMES DAILY NEEDED TAKING FLONASE 50 MCG/DOSE INHALER 1 SPRAY IN EACH NOSTRIL NASALLY NEEDED TAKING METOPROLOL SUCCINATE ER 50 MG TABLET EXTENDED RELEASE 24 HOUR 1 TABLET ORALLY ONCE A DAY TAKING CYMBALTA 60 MG CAPSULE DELAYED RELEASE PARTICLES 1 CAPSULE ORALLY DAILY TAKING TYLENOL 1 TAB 500MGS ORAL EVERY 4 HOURS NEEDED TAKING PANTOPRAZOLE SODIUM 40 MG TABLET DELAYED RELEASE ORAL ONCE A DAY TAKING TRULICITY 0.75 MG/0.5ML SOLUTION PEN-INJECTOR 1 INJECTION SUBCUTANEOUS WEEKLY NOT-TAKING VITAMIN D (ERGOCALCIFEROL) 87478 UNIT CAPSULE ORAL WEEKLY NOT-TAKING OXYCODONE-ACETAMINOPHEN 5-325 MG TABLET 1 TAB ORAL Q8H PRN MDD3 NOT-TAKING REPAGLINIDE 2 MG TABLET ORAL BID NOT-TAKING INVOKANA 300 MG TABLET 1/2 TABLET ORALLY ONCE A DAY NOT-TAKING VALIUM 5 MG TABLET 1 ORALLY 1 TAB 1HR PREPROC. MDD1 NOT-TAKING OXYCODONE HCL 5 MG TABLET 1 TABLET ORALLY 1TAB 1HR PREPROC. MDD1 NOT-TAKING GABAPENTIN 100 MG CAPSULE ORAL NOT-TAKING PREDNISONE 20 MG TABLET ORAL TAPERED DOSE DISCONTINUED TANZEUM 50 MG PEN-INJECTOR 4 UNITS SUBCUTANEOUS WEEKLY, NOTES: LAST WEEK DISCONTINUED IBUPROFEN 400 MG TABLET ORAL THREE TIMES DAILY NEEDED DISCONTINUED BASAGLAR KWIKPEN 100 UNIT/ML SOLUTION PEN-INJECTOR SUBCUTANEOUS DAILY MEDICATION LIST REVIEWED AND RECONCILED WITH THE PATIENT PAST MEDICAL HISTORY HEADACHE HTN POLYCYSTIC OVARIES SEASONAL ALLERGIC RHINITIS / HAY FEVER SLEEP APNEA ALLERGIES SULFA (FOR ALLERGY USE ONLY): RASH GRAPEFRIUT: RASH TOMATO: RASH SURGICAL HISTORY CHOLECYSTECTOMY TUBAL LIGATION FAMILY HISTORY FATHER: DIAGNOSED WITH DIABETES, HYPERTENSION MOTHER: DIAGNOSED WITH HYPERTENSION SOCIAL HISTORY GENERAL: TOBACCO USE ARE YOU A:NONSMOKER [employer]IST [id number] ORIENTAL ORTHODOX LANGUAGE LANGUAGES SPOKEN:COSTA RICAN EDUCATION LEVEL OF EDUCATION:FINISHED COLLEGE LEARNING BARRIERS / SPECIAL NEEDS BARRIERS TO LEARNING?NO HEARING IMPAIRED?NO VISION IMPAIRED?YES COGNITIVELY IMPAIRED?NO :CORRECTIVE LENSES READINESS TO LEARN?YES LEARNING PREFERENCES?YES :BOOKLETS, HANDOUTS SPECIAL DEVICES?NO PAIN CLINIC PFS, CLERGY, PUBLIC HEALTH REFERRALS PFS REFERRAL NEEDED?NO CLERGY REFERRAL NEEDED?NO PUBLIC HEALTH REFERRAL NEEDED?NO WAS THE PROVIDER NOTIFIED OF ANY PERTINENT INFO?NO HAS THE PATIENT BEEN EDUCATED REGARDING HIS/HER PLAN OF CARE?YES HAS THE PATIENT BEEN EDUCATED REGARDING PAIN, THE RISK FOR PAIN, THE IMPORTANCE OF EFFECTIVE PAIN MANAGEMENT, AND THE PAIN ASSESSMENT PROCESS?YES ADVANCE DIRECTIVE ADVANCE DIRECTIVE DISCUSSED WITH PATIENT:YES PT DOES NOT HAVE HCP AND DECLINES INFO AT THIS TIME. REVIEWED WITH PT 08/12/18 1038 BVREVIEWED WITH PT 10/02/18 0912 BV. HOSPITALIZATION/MAJOR DIAGNOSTIC PROCEDURE KIDNEY STONES REVIEW OF SYSTEMS REVIEWED BY: PROVIDER: GADIEL BERGERON . CONSTITUTIONAL: ANY CHANGE IN YOUR MEDICAL CONDITION? NO . CHILLS NO . FEVER NO . INFECTION: DO YOU HAVE NEW INFECTIONS? NO . DO YOU HAVE HISTORY OF MRSA? NO . MUSCULOSKELETAL: ANY NEW PATTERNS OF PAIN OR NUMBNESS? NO . GASTROENTEROLOGY: ANY NEW CHANGE IN BOWEL CONTROL? NO . GENITOURINARY: ANY NEW CHANGE IN BLADDER CONTROL? NO . IS THERE A CHANCE YOU COULD BE ? NO . HEMATOLOGY/LYMPH: DO YOU TAKE ANY BLOOD THINNERS? (FOR EXAMPLE- COUMADIN, PLAVIX, AGGRENOX, PLATEL, PRADAXA, OR XARELTO) NO . WHEN WAS YOUR LAST DOSE? DATE: TIME: . NEUROLOGY: HAVE YOU FALLEN IN THE PAST 12 MONTHS? NO . ANY NEW EXTREMITY NUMBNESS OR WEAKNESS? NO . CARDIOLOGY: DO YOU HAVE A PACEMAKER OR DEFIBRILLATOR? NO . RESPIRATORY: HAVE YOU BEEN SICK IN THE PAST WEEK? NO . FEVER NO . FLU LIKE SYMPTOMS? NO . COUGH NO . INTEGUMENTARY: DO YOU HAVE ANY RASHES OR OPEN SORES? NO . ALLERGIC/IMMUNO: ARE YOU ALLERGIC TO IV DYE? NO . ANY NEW ALLERGIES? NO . PSYCHIATRIC: DO YOU HAVE THOUGHTS OF HURTING YOURSELF OR SOMEONE ELSE? NO . ARE YOU ABUSED, NEGLECTED, OR IN AN UNSAFE ENVIRONMENT? NO . ENDOCRINOLOGY: ARE YOU DIABETIC? YES . OTHER: DO YOU NEED ANY PRESCRIPTIONS? NO . IF YES, PLEASE LIST: ____ . ANY NEW PROBLEMS WITH YOUR MEDICATIONS? NO . WHEN DID YOU LAST EAT? ____ . WHEN DID YOU LAST DRINK? ____ . WHAT DID YOU LAST DRINK? ____ . NAME OF PERSON DRIVING YOU HOME? ____ . DO YOU HAVE ANY OTHER QUESTIONS OR CONCERNS NO . VITAL SIGNS WT 264.6 LBS, HT 65 IN, BMI 44.03 INDEX, BP 156/104 MM HG, HR 95 /MIN, RR 18 /MIN, TEMP 97.3 F, OXYGEN SAT % 96%, NA INITIALS AW 1052, REVIEWED BY: EMLET NURSE KNOW ABOUT BPPT STATES SHE TOOK B/P PILLS LATER THAN USUAL TODAY. EM. EXAMINATION GENERAL EXAMINATION: GENERAL APPEARANCE:ALERT,NO ACUTE DISTRESS . PSYCHAFFECT NORMAL . NECK:TRACHEA MIDLINE. NO CERVICAL OR SUPRACLAVICULAR LYMPHADENOPATHY NOTED . LUNGS:LUNG SOUNDS ARE CLEAR . HEART:S1, S2 IN A REGULAR RATE AND RHYTHM. NO SIGNIFICANT MURMURS, RUBS OR GALLOPS NOTED . LUMBAR SACRAL SPINEBILAT. SIJ TENDERNESS MULTIPLE AREAS OF TENDERNESS ENTIRE SPINE AND PARASPINAL . DIAGNOSTIC TESTS REVIEWEDMRI L/S [id number]. ASSESSMENTS SACROILIAC JOINT PAIN - M53.3 (PRIMARY) LUMBAR FACET ARTHROPATHY - M12.88 FIBROMYALGIA - M79.7 TREATMENT SACROILIAC JOINT PAIN CONTINUE CYCLOBENZAPRINE HCL TABLET, 5 MG, 1 TAB, ORAL, THREE TIMES DAILY NEEDED REFILL CYMBALTA CAPSULE DELAYED RELEASE PARTICLES, 60 MG, 1 CAPSULE, ORALLY, DAILY, 30 DAY(S), 30 CAPSULE, REFILLS 5 PROCEDURE CODES FA211 ESTABILISHED PATIENT [facility] CHARGE DISPOSITION & COMMUNICATION FOLLOW UP 3 MONTHS ELECTRONICALLY SIGNED BY RUBIO EMANUEL ON 01/10/2019 AT 03:42 PM EST DISCLAIMER : THIS IS A VISIT SUMMARY EXTRACTED FROM THE [employer] CHART. IT IS NOT A COPY OF THE [employer] PROGRESS NOTE. SHELLEY
== END ==
LOC: M PAIN 10:30
PROVIDERS: ATTEND Nurse Practitioner Family
DX: M53.3 Sacrococcygeal disorders, not elsewhere classified (principal); M12.88 Other specific arthropathies, not elsewhere classified, other specified site; M79.7 Fibromyalgia; I10 Essential (primary) hypertension; E11.9 Type 2 diabetes mellitus without complications; Z88.2 Allergy status to sulfonamides; Z91.018 Allergy to other foods; E66.01 Morbid (severe) obesity due to excess calories; Z68.41 Body mass index [BMI] 40.0-44.9, adult; Z79.4 Long term (current) use of insulin; Z79.899 Other long term (current) drug therapy

== ENCOUNTER → 2019-03-29 | Outpatient (CLI) | payer BC ==
[~2019-03-29] MED LIST changes: +TRUL10IN SC
--- NOTE | 2019-03-30 04:23 | REP ---
Clinical: Splenomegaly by physical examination. Technique: Real time parada scale ultrasound examination using curved array transducer. Findings: The spleen is enlarged and measures 13.1 x 4.8 x 13.9 cm (VU=434) without focal abnormality identified. The left kidney is normal in reniform shape without hydronephrosis or nephrolithiasis and measures 12.1 x 4.4 x 3.8 cm. No ascites noted left upper quadrant. Impression: Splenomegaly. Electronically Signed by Cristóbal Caraballo MD 03/30/2019 04:15 A
== END ==
LOC: M RAD 07:41
PROVIDERS: ATTEND Internal Medicine Medical Oncology
DX: D72.829 Elevated white blood cell count, unspecified (principal); R16.1 Splenomegaly, not elsewhere classified

== ENCOUNTER → 2019-04-01 | Outpatient (CLI) | payer BC ==
--- NOTE | 2019-04-18 00:15 | ECWPNPC ---
PATIENT NAME: ULISES PEREZ : 1970 GENDER: FEMALE VISIT DATE: 04/01/2019 DISCHARGE DATE: 04/01/19 1013 VISIT LOCKED DATE TIME: PHYSICIAN: GADIEL MAGDALENO RESOURCE: GADIEL MAGDALENO REASON FOR APPOINTMENT 1. HIPS HISTORY OF PRESENT ILLNESS HISTORY OF PRESENT ILLNESS: HERE FOR F/U OF CHRONIC LOW BACK PAIN R>L.PAIN HAS AGGREVATED LATELY.THIS IS MAINLY BECAUSE OF INCREASE IN PHYSICAL ACTIVITY AT WORK IE VACUUMING AND STAIR CLIMBING.RATING PAIN VAS 4/10. PAIN THE PATIENT DESCRIBES THE PAIN... FALL RISK SCREENING: SCREENING :NO FALLS REPORTED IN THE LAST YEAR CURRENT MEDICATIONS TAKING LISINOPRIL 40 MG TABLET ORAL ONCE DAILY TAKING IBUPROFEN 800 MG TABLET 1 TABLET ORALLY 3X/DAY NEEDED TAKING FLONASE 50 MCG/DOSE INHALER 1 SPRAY IN EACH NOSTRIL NASALLY NEEDED TAKING METOPROLOL SUCCINATE ER 50 MG TABLET EXTENDED RELEASE 24 HOUR 1 TABLET ORALLY ONCE A DAY TAKING TYLENOL 1 TAB 500MGS ORAL EVERY 4 HOURS NEEDED TAKING PANTOPRAZOLE SODIUM 40 MG TABLET DELAYED RELEASE ORAL ONCE A DAY TAKING TRULICITY 0.75 MG/0.5ML SOLUTION PEN-INJECTOR 1 INJECTION SUBCUTANEOUS WEEKLY TAKING CYCLOBENZAPRINE HCL 5 MG TABLET 1 TAB ORAL THREE TIMES DAILY NEEDED TAKING CYMBALTA 60 MG CAPSULE DELAYED RELEASE PARTICLES 1 CAPSULE ORALLY DAILY NOT-TAKING VITAMIN D (ERGOCALCIFEROL) 92251 UNIT CAPSULE ORAL WEEKLY NOT-TAKING OXYCODONE-ACETAMINOPHEN 5-325 MG TABLET 1 TAB ORAL Q8H PRN MDD3 NOT-TAKING REPAGLINIDE 2 MG TABLET ORAL BID NOT-TAKING INVOKANA 300 MG TABLET 1/2 TABLET ORALLY ONCE A DAY NOT-TAKING VALIUM 5 MG TABLET 1 ORALLY 1 TAB 1HR PREPROC. MDD1 NOT-TAKING OXYCODONE HCL 5 MG TABLET 1 TABLET ORALLY 1TAB 1HR PREPROC. MDD1 NOT-TAKING GABAPENTIN 100 MG CAPSULE ORAL NOT-TAKING PREDNISONE 20 MG TABLET ORAL TAPERED DOSE MEDICATION LIST REVIEWED AND RECONCILED WITH THE PATIENT PAST MEDICAL HISTORY HEADACHE HTN POLYCYSTIC OVARIES SEASONAL ALLERGIC RHINITIS / HAY FEVER SLEEP APNEA ALLERGIES SULFA (FOR ALLERGY USE ONLY): RASH GRAPEFRIUT: RASH TOMATO: RASH SURGICAL HISTORY CHOLECYSTECTOMY TUBAL LIGATION FAMILY HISTORY FATHER: DIAGNOSED WITH DIABETES, HYPERTENSION MOTHER: HYPERTENSION SOCIAL HISTORY GENERAL: TOBACCO USE ARE YOU A:NONSMOKER PAIN CLINIC PFS, CLERGY, PUBLIC HEALTH REFERRALS PFS REFERRAL NEEDED?NO CLERGY REFERRAL NEEDED?NO PUBLIC HEALTH REFERRAL NEEDED?NO WAS THE PROVIDER NOTIFIED OF ANY PERTINENT INFO?YES HAS THE PATIENT BEEN EDUCATED REGARDING HIS/HER PLAN OF CARE?YES HAS THE PATIENT BEEN EDUCATED REGARDING PAIN, THE RISK FOR PAIN, THE IMPORTANCE OF EFFECTIVE PAIN MANAGEMENT, AND THE PAIN ASSESSMENT PROCESS?YES LATEX QUESTIONNAIRE LATEX ALLERGY : HAVE YOU EVER DEVELOPED ANY TYPE OF REACTION AFTER HANDLING LATEX PRODUCTS SUCH RUBBER GLOVES, CONDOMS, DIAPHRAGMS, BALLOONS, SOCKS, OR UNDERWEAR?NO LATEX ALLERGY : HAVE YOU EVER DEVELOPED ANY TYPE OF REACTION DURING OR AFTER DENTAL APPOINTMENT, VAGINAL/RECTAL EXAMINATION, SURGICAL PROCEDURE, OR ANY OTHER EXPOSURE?NO LATEX RISK : HAVE YOU EVER HAD ANY DIFFICULTY BREATHING OR HIVES AFTER EATING OR HANDLING ANY FRUITS, OR VEGETABLES; SUCH KIWI, BANANAS, STONE FRUITS, OR CHESTNUTSNO LATEX RISK : DO YOU HAVE A PREVIOUS PERSONAL HISTORY OF MORE THAN NINE SURGERIES, SPINA BIFIDA, OR REPEATED CATHERTIZATIONS? NO LATEX RISK : ARE YOU FREQUENTLY EXPOSED TO LATEX PRODUCTS IN YOUR OCCUPATION?NO DATE ASKED : 04/01/2019 ADVANCE DIRECTIVE ADVANCE DIRECTIVE DISCUSSED WITH PATIENT:YES HCP CHICHI CHRIS [phone] EDUCATION LEVEL OF EDUCATION:FINISHED COLLEGE ISLAM [id number] BUDDHIST LANGUAGE LANGUAGES SPOKEN:CHINESE LEARNING BARRIERS / SPECIAL NEEDS BARRIERS TO LEARNING?NO HEARING IMPAIRED?NO VISION IMPAIRED?YES :CORRECTIVE LENSES COGNITIVELY IMPAIRED?NO READINESS TO LEARN?YES LEARNING PREFERENCES?YES :BOOKLETS, HANDOUTS SPECIAL DEVICES?NO REVIEWED WITH PT 08/12/18 1038 BVREVIEWED WITH PT 10/02/18 0912 BV. HOSPITALIZATION/MAJOR DIAGNOSTIC PROCEDURE KIDNEY STONES REVIEW OF SYSTEMS REVIEWED BY: PROVIDER: GADIEL BERGERON . CONSTITUTIONAL: ANY CHANGE IN YOUR MEDICAL CONDITION? NO . CHILLS NO . FEVER NO . INFECTION: DO YOU HAVE NEW INFECTIONS? NO . DO YOU HAVE HISTORY OF MRSA? NO . MUSCULOSKELETAL: ANY NEW PATTERNS OF PAIN OR NUMBNESS? YES, FINGER TIPS IN LEFT HAND NUMBNESS . GASTROENTEROLOGY: ANY NEW CHANGE IN BOWEL CONTROL? NO . GENITOURINARY: ANY NEW CHANGE IN BLADDER CONTROL? YES, MORE URGENT . IS THERE A CHANCE YOU COULD BE ? NO . HEMATOLOGY/LYMPH: DO YOU TAKE ANY BLOOD THINNERS? (FOR EXAMPLE- COUMADIN, PLAVIX, AGGRENOX, PLATEL, PRADAXA, OR XARELTO) NO . WHEN WAS YOUR LAST DOSE? DATE: TIME: . NEUROLOGY: HAVE YOU FALLEN IN THE PAST 12 MONTHS? NO . ANY NEW EXTREMITY NUMBNESS OR WEAKNESS? NO . CARDIOLOGY: DO YOU HAVE A PACEMAKER OR DEFIBRILLATOR? NO . RESPIRATORY: HAVE YOU BEEN SICK IN THE PAST WEEK? NO . FEVER NO . FLU LIKE SYMPTOMS? NO . COUGH NO . INTEGUMENTARY: DO YOU HAVE ANY RASHES OR OPEN SORES? NO . ALLERGIC/IMMUNO: ARE YOU ALLERGIC TO IV DYE? NO . ANY NEW ALLERGIES? NO . PSYCHIATRIC: DO YOU HAVE THOUGHTS OF HURTING YOURSELF OR SOMEONE ELSE? NO . ARE YOU ABUSED, NEGLECTED, OR IN AN UNSAFE ENVIRONMENT? NO . ENDOCRINOLOGY: ARE YOU DIABETIC? YES, TYPE 2 . OTHER: DO YOU NEED ANY PRESCRIPTIONS? NO . IF YES, PLEASE LIST: ____ . ANY NEW PROBLEMS WITH YOUR MEDICATIONS? NO . WHEN DID YOU LAST EAT? ____ . WHEN DID YOU LAST DRINK? ____ . WHAT DID YOU LAST DRINK? ____ . NAME OF PERSON DRIVING YOU HOME? ____ . DO YOU HAVE ANY OTHER QUESTIONS OR CONCERNS NUMBNESS IN FINGERTIPS NOT SURE IF RELATED TO BACK -HIPS . VITAL SIGNS WT 264 LBS, HT 65 IN, BMI 43.93 INDEX, BP 143/93 MM HG, HR 96 /MIN, RR 18 /MIN, TEMP 99.0 F, OXYGEN SAT % 96%, SAFE IN ENV? (Y/N) Y, NA INITIALS AW 0907, REVIEWED BY: LOUISA. EXAMINATION GENERAL EXAMINATION: GENERAL APPEARANCE:ALERT,NO ACUTE DISTRESS . PSYCHAFFECT NORMAL . NECK:TRACHEA MIDLINE. NO CERVICAL OR SUPRACLAVICULAR LYMPHADENOPATHY NOTED . LUNGS:LUNG SOUNDS ARE CLEAR . HEART:S1, S2 IN A REGULAR RATE AND RHYTHM. NO SIGNIFICANT MURMURS, RUBS OR GALLOPS NOTED . LUMBAR SACRAL SPINEBILAT. SIJ TENDERNESS MULTIPLE AREAS OF TENDERNESS ENTIRE SPINE AND PARASPINAL . DIAGNOSTIC TESTS REVIEWEDMRI L/S [id number]. ASSESSMENTS SACROILIITIS, NOT ELSEWHERE CLASSIFIED - M46.1 (PRIMARY) TREATMENT SACROILIITIS, NOT ELSEWHERE CLASSIFIED CONTINUE CYCLOBENZAPRINE HCL TABLET, 5 MG, 1 TAB, ORAL, THREE TIMES DAILY NEEDED CONTINUE CYMBALTA CAPSULE DELAYED RELEASE PARTICLES, 60 MG, 1 CAPSULE, ORALLY, DAILY NOTES: BILAT. DEDRICKJ. PROCEDURE CODES FA211 ESTABILISHED PATIENT [facility] CHARGE DISPOSITION & COMMUNICATION FOLLOW UP POST (REASON: BILAT. SIJ) ELECTRONICALLY SIGNED BY RUBIO EMANUEL ON 04/17/2019 AT 12:40 PM EDT DISCLAIMER : THIS IS A VISIT SUMMARY EXTRACTED FROM THE [employer] CHART. IT IS NOT A COPY OF THE [employer] PROGRESS NOTE. MTDD
== END ==
LOC: M PAIN 08:45
PROVIDERS: ATTEND Nurse Practitioner Family
DX: M46.1 Sacroiliitis, not elsewhere classified (principal); G89.29 Other chronic pain; I10 Essential (primary) hypertension; G47.30 Sleep apnea, unspecified; Z88.2 Allergy status to sulfonamides; Z91.018 Allergy to other foods; E11.9 Type 2 diabetes mellitus without complications; E66.01 Morbid (severe) obesity due to excess calories; Z68.41 Body mass index [BMI] 40.0-44.9, adult; Z79.899 Other long term (current) drug therapy

== ENCOUNTER → 2019-07-13 | Outpatient (CLI) | payer BC ==
[~2019-07-13] MED LIST changes: +BUPIVACAINE HCL 0.25% 30 ML VIAL As Ordered ONE; -DULO1CAP3 PO; +DULO1CAP6 PO; +ISOVUE-M 200 41% 20ML VIAL (Q9966) As Ordered ONE; +LIDOCAINE 1% SDV INJ 30 ML VIAL As Ordered ONE; -OMEP20CA3 PO; +OMEP20CA4 PO; +TRIAMCINOLONE ACETONIDE SUSP 40 MG/ML VIAL (J3301) As Ordered ONE; +diazePAM 5 MG TAB As Ordered ONE; +oxyCODONE 5MG TAB As Ordered ONE
--- NOTE | 2019-07-13 13:41 | REP ---
SI joint series: Four views. History: Bilateral SI joint injection for pain. 43 seconds of fluoroscopy time is reported. Findings: A sequence of four last image hold fluoroscopically obtained spot radiographs of the SI joints document various needle positions associated with SI joint injection procedure. Electronically Signed by Mark Lewis MD 07/13/2019 01:32 P
--- NOTE | 2019-07-21 01:12 | ECWPNPC ---
PATIENT NAME: ULISES PEREZ : 1970 GENDER: FEMALE VISIT DATE: 07/13/2019 DISCHARGE DATE: 07/13/19 1215 VISIT LOCKED DATE TIME: PHYSICIAN: SREE VILLALOBOS MD RESOURCE: SREE VILLALOBOS MD REASON FOR APPOINTMENT 1. BILATERAL SIJ HISTORY OF PRESENT ILLNESS HISTORY OF PRESENT ILLNESS: PAIN THE PATIENT DESCRIBES THE PAIN... FALL RISK SCREENING: SCREENING :NO FALLS REPORTED IN THE LAST YEAR CURRENT MEDICATIONS TAKING LISINOPRIL 40 MG TABLET ORAL ONCE DAILY, NOTES: 07/13/19 0800 TAKING IBUPROFEN 800 MG TABLET 1 TABLET ORALLY 3X/DAY NEEDED, NOTES: >1 MONTH TAKING FLONASE 50 MCG/DOSE INHALER 1 SPRAY IN EACH NOSTRIL NASALLY NEEDED, NOTES: > 1 YEAR TAKING METOPROLOL SUCCINATE ER 50 MG TABLET EXTENDED RELEASE 24 HOUR 1 TABLET ORALLY ONCE A DAY, NOTES: 07/13/19 0800 TAKING TYLENOL 1 TAB 500MGS ORAL EVERY 4 HOURS NEEDED, NOTES: > 1 MONTH TAKING PANTOPRAZOLE SODIUM 40 MG TABLET DELAYED RELEASE ORAL ONCE A DAY, NOTES: 07/13/19 0800 TAKING TRULICITY 0.75 MG/0.5ML SOLUTION PEN-INJECTOR 1 INJECTION SUBCUTANEOUS WEEKLY, NOTES: 07/09/19 TAKING CYCLOBENZAPRINE HCL 5 MG TABLET 1 TAB ORAL THREE TIMES DAILY NEEDED, NOTES: > 1 MONTH TAKING CYMBALTA 60 MG CAPSULE DELAYED RELEASE PARTICLES 1 CAPSULE ORALLY DAILY, NOTES: > 3 MONTHS TAKING LANTUS 100 UNIT/ML SOLUTION DIRECTED SUBCUTANEOUS , NOTES: 07/12/19 2130 NOT-TAKING VITAMIN D (ERGOCALCIFEROL) 20841 UNIT CAPSULE ORAL WEEKLY NOT-TAKING OXYCODONE-ACETAMINOPHEN 5-325 MG TABLET 1 TAB ORAL Q8H PRN MDD3 NOT-TAKING REPAGLINIDE 2 MG TABLET ORAL BID NOT-TAKING INVOKANA 300 MG TABLET 1/2 TABLET ORALLY ONCE A DAY NOT-TAKING VALIUM 5 MG TABLET 1 ORALLY 1 TAB 1HR PREPROC. MDD1 NOT-TAKING OXYCODONE HCL 5 MG TABLET 1 TABLET ORALLY 1TAB 1HR PREPROC. MDD1 NOT-TAKING GABAPENTIN 100 MG CAPSULE ORAL NOT-TAKING PREDNISONE 20 MG TABLET ORAL TAPERED DOSE MEDICATION LIST REVIEWED AND RECONCILED WITH THE PATIENT PAST MEDICAL HISTORY HEADACHE HTN POLYCYSTIC OVARIES SEASONAL ALLERGIC RHINITIS / HAY FEVER SLEEP APNEA COLITIS ALLERGIES SULFA (FOR ALLERGY USE ONLY): RASH GRAPEFRIUT: RASH TOMATO: RASH FLAGYL: HEAD ACHE , STIFF NECK ,NAUSEA SURGICAL HISTORY CHOLECYSTECTOMY TUBAL LIGATION FAMILY HISTORY FATHER: DIAGNOSED WITH DIABETES, HYPERTENSION MOTHER: HYPERTENSION 3 SISTER(S) - HEALTHY. 3 SON(S) , 1 DAUGHTER(S) - HEALTHY. SOCIAL HISTORY GENERAL: TOBACCO USE ARE YOU A:NONSMOKER OTHERS AT HOME: SPOUSE, CHILDREN. EDUCATION LEVEL OF EDUCATION:FINISHED COLLEGE DIET: WATCH DIET. LANGUAGE LANGUAGES SPOKEN:BENGALI EXERCISE: WALKS. LEARNING BARRIERS / SPECIAL NEEDS BARRIERS TO LEARNING?NO HEARING IMPAIRED?NO VISION IMPAIRED?YES :CORRECTIVE LENSES COGNITIVELY IMPAIRED?NO READINESS TO LEARN?YES LEARNING PREFERENCES?YES :BOOKLETS, HANDOUTS SPECIAL DEVICES?NO PAIN CLINIC PFS, CLERGY, PUBLIC HEALTH REFERRALS PFS REFERRAL NEEDED?NO CLERGY REFERRAL NEEDED?NO PUBLIC HEALTH REFERRAL NEEDED?NO WAS THE PROVIDER NOTIFIED OF ANY PERTINENT INFO?YES HAS THE PATIENT BEEN EDUCATED REGARDING HIS/HER PLAN OF CARE?YES HAS THE PATIENT BEEN EDUCATED REGARDING PAIN, THE RISK FOR PAIN, THE IMPORTANCE OF EFFECTIVE PAIN MANAGEMENT, AND THE PAIN ASSESSMENT PROCESS?YES LATEX QUESTIONNAIRE LATEX ALLERGY : HAVE YOU EVER DEVELOPED ANY TYPE OF REACTION AFTER HANDLING LATEX PRODUCTS SUCH RUBBER GLOVES, CONDOMS, DIAPHRAGMS, BALLOONS, SOCKS, OR UNDERWEAR?NO LATEX ALLERGY : HAVE YOU EVER DEVELOPED ANY TYPE OF REACTION DURING OR AFTER DENTAL APPOINTMENT, VAGINAL/RECTAL EXAMINATION, SURGICAL PROCEDURE, OR ANY OTHER EXPOSURE?NO LATEX RISK : HAVE YOU EVER HAD ANY DIFFICULTY BREATHING OR HIVES AFTER EATING OR HANDLING ANY FRUITS, OR VEGETABLES; SUCH KIWI, BANANAS, STONE FRUITS, OR CHESTNUTSNO LATEX RISK : DO YOU HAVE A PREVIOUS PERSONAL HISTORY OF MORE THAN NINE SURGERIES, SPINA BIFIDA, OR REPEATED CATHERIZATIONS? NO LATEX RISK : ARE YOU FREQUENTLY EXPOSED TO LATEX PRODUCTS IN YOUR OCCUPATION?NO DATE ASKED : 07/13/2019 ADVANCE DIRECTIVE ADVANCE DIRECTIVE DISCUSSED WITH PATIENT:YES HCP CHICHI PEREZ [phone] MANDAEN [id number] [facility] STATUS: . ALCOHOL SCREENING DID YOU HAVE A DRINK CONTAINING ALCOHOL IN THE PAST YEAR?YES HOW OFTEN DID YOU HAVE A DRINK CONTAINING ALCOHOL IN THE PAST YEAR?MONTHLY OR LESS (1 POINT) HOW MANY DRINKS DID YOU HAVE ON A TYPICAL DAY WHEN YOU WERE DRINKING IN THE PAST YEAR?1 OR 2 (0 POINTS) HOW OFTEN DID YOU HAVE SIX OR MORE DRINKS ON ONE OCCASION IN THE PAST YEAR?NEVER (0 POINTS) POINTS1 INTERPRETATIONNEGATIVE OCCUPATION: HEALTH CARE. REVIEWED WITH PT 08/12/18 1038 BVREVIEWED WITH PT 10/02/18 0912 BV. HOSPITALIZATION/MAJOR DIAGNOSTIC PROCEDURE KIDNEY STONES COLITIS 05/09/19 PNUMONIA 05/16/19 REVIEW OF SYSTEMS REVIEWED BY: PROVIDER: . CONSTITUTIONAL: ANY CHANGE IN YOUR MEDICAL CONDITION? NO . CHILLS NO . FEVER NO . INFECTION: DO YOU HAVE NEW INFECTIONS? NO . DO YOU HAVE HISTORY OF MRSA? NO . MUSCULOSKELETAL: ANY NEW PATTERNS OF PAIN OR NUMBNESS? NO . GASTROENTEROLOGY: ANY NEW CHANGE IN BOWEL CONTROL? YES,DIARRHEA DR DE OLIVEIRA AWARE . GENITOURINARY: ANY NEW CHANGE IN BLADDER CONTROL? NO . IS THERE A CHANCE YOU COULD BE ? NO . HEMATOLOGY/LYMPH: DO YOU TAKE ANY BLOOD THINNERS? (FOR EXAMPLE- COUMADIN, PLAVIX, AGGRENOX, PLATEL, PRADAXA, OR XARELTO) NO . WHEN WAS YOUR LAST DOSE? DATE: TIME: . NEUROLOGY: HAVE YOU FALLEN IN THE PAST 12 MONTHS? NO . ANY NEW EXTREMITY NUMBNESS OR WEAKNESS? NO . CARDIOLOGY: DO YOU HAVE A PACEMAKER OR DEFIBRILLATOR? NO . RESPIRATORY: HAVE YOU BEEN SICK IN THE PAST WEEK? NO . FEVER NO . FLU LIKE SYMPTOMS? NO . COUGH NO . INTEGUMENTARY: DO YOU HAVE ANY RASHES OR OPEN SORES? NO . ALLERGIC/IMMUNO: ARE YOU ALLERGIC TO IV DYE? NO . ANY NEW ALLERGIES? YES, FLAGYL . PSYCHIATRIC: DO YOU HAVE THOUGHTS OF HURTING YOURSELF OR SOMEONE ELSE? NO . ARE YOU ABUSED, NEGLECTED, OR IN AN UNSAFE ENVIRONMENT? NO . ENDOCRINOLOGY: ARE YOU DIABETIC? YES . OTHER: DO YOU NEED ANY PRESCRIPTIONS? NO . IF YES, PLEASE LIST: ____ . ANY NEW PROBLEMS WITH YOUR MEDICATIONS? NO . WHEN DID YOU LAST EAT? ____07/12/19 . WHEN DID YOU LAST DRINK? ____0800 . WHAT DID YOU LAST DRINK? ____WATER WITH MEDS . NAME OF PERSON DRIVING YOU HOME? ____RICH LAGREE . DO YOU HAVE ANY OTHER QUESTIONS OR CONCERNS NO . VITAL SIGNS WT 251.4 LBS, HT 65 IN, BMI 41.83 INDEX, BP 149/84 MM HG, HR 85 /MIN, RR 18 /MIN, TEMP 97.0 F, OXYGEN SAT % 94%, SAFE IN ENV? (Y/N) YES, NA INITIALS FL 10:01, REVIEWED BY: ARCELIA. ASSESSMENTS SACROILIITIS, NOT ELSEWHERE CLASSIFIED - M46.1 (PRIMARY) TREATMENT SACROILIITIS, NOT ELSEWHERE CLASSIFIED [facility]ORO GUIDANCE (PAIN)[id number] PROCEDURES PN SI PRE PROCEDURE DIAGNOSIS SACROILIITIS, SACROILIAC JOINT DYSFUNCTION POST PROCEDURE DIAGNOSIS SACROILIITIS, SACROILIAC JOINT DYSFUNCTION PROCEDURE BILATERAL SACROILIAC JOINT BLOCK SURGEON DR. SREE VILLALOBOS DESK ASSISTANT NONE ANESTHESIA LOCAL PRE PROCEDURE NOTE PATIENT WITH HISTORY OF CHRONIC LOW BACK PAIN. I EVALUATED THE PATIENT AND REVIEWED THE CHART. I WENT OVER THE RISKS, ALTERNATIVES, AND BENEFITS ASSOCIATED WITH THIS PROCEDURE. THE PATIENT WOULD LIKE TO PROCEED AND GAVE CONSENT TO PERFORM THE PROCEDURE. THE PATIENT DENIES UNEXPLAINABLE WEIGHT LOSS, FEVER, CHILLS, OR NEW CHANGES IN URINARY OR BOWEL CONTROL DESCRIPTION OF PROCEDURE THE PATIENT WAS BROUGHT TO THE PROCEDURE ROOM AND PLACED IN THE PRONE POSITION. THE LUMBOSACRAL AREA WAS CLEANED WITH CHLORAPREP SOLUTION AND DRAPED ASEPTICALLY. THE PROCEDURE WAS DONE UNDER STERILE CONDITIONS. I CHECKED LATERALITY AND THE LEVEL WHERE THE PROCEDURE WAS GOING TO BE PERFORMED WITH THE PATIENT AND THE SUPPORTING STAFF AT THE MOMENT OF THE TIME OUT IN THE PROCEDURE ROOM. UNDER FLUOROSCOPIC GUIDANCE, TARGET POINT WAS SELECTED AT THE LOWER BORDER OF THE RIGHT SACROILIAC JOINT AREA AND THE LEFT SACROILIAC JOINT AREA. TARGET POINT WAS SELECTED AFTER MEDIAL ROTATION AND TILT OF THE MAGNIFIER OF THE C-ARM. LIDOCAINE WAS USED TO NUMB THE SKIN AND SUBCUTANEOUS TISSUE BELOW IT. A SPINAL NEEDLE, 22-GAUGE, WAS ADVANCED UNDER FLUOROSCOPIC GUIDANCE AND FOLLOWING PATIENT FEEDBACK UNTIL THE TARGET AREA WAS TOUCHED. THE POSITION OF THE NEEDLE WAS VERIFIED WITH AP AND LATERAL VIEWS. AFTER PROPER POSITION OF THE NEEDLE WAS ACHIEVED, ISOVUE M-200 CONTRAST WAS INJECTED SHOWING SPREAD OF THE DYE. THEN, A SOLUTION OF 30 MG OF KENALOG WAS INJECTED IN RIGHT AND LEFT JOINT WITH 3 ML OF BUPIVACAINE 0.125%. THERE WAS NO EVIDENCE OF BLOOD, PARESTHESIA OR CEREBROSPINAL FLUID DURING THE PROCEDURE. THE PATIENT WAS SENT TO THE RECOVERY ROOM. THE PATIENT WAS MOVING THE EXTREMITIES AND DOING WELL. THERE WAS NO COMPLICATION DURING THE PROCEDURE. FLUOROSCOPY TIME WAS 43 SECONDS POST PROCEDURE NOTE THE PATIENT WILL BE SEEN IN A FOLLOW UP IN THE NEXT FEW WEEKS. INSTRUCTIONS WERE GIVEN, QUESTIONS WERE ANSWERED, AND THE PATIENT EXPRESSED UNDERSTANDING AND AGREED WITH THE PLAN. I, KIA BARAJAS, DOCUMENTED THE ABOVE INFORMATION ACTING A SCRIBE FOR DR. VILLALOBOS. I HAVE REVIEWED THE ABOVE DOCUMENT, WRITTEN BY KIA BARAJAS SCRIBEnrique AND I VERIFY THAT IT IS ACCURATE. PROCEDURE CODES 14662 INJECT SACROILIAC JOINT, MODIFIERS: 50 [id number] RADXPS IN END [id number] PXD DISPOSITION & COMMUNICATION FOLLOW UP 3 WEEKS ELECTRONICALLY SIGNED BY SREE VILLALOBOS MD, MD ON 07/20/2019 AT 12:50 PM EDT DISCLAIMER : THIS IS A VISIT SUMMARY EXTRACTED FROM THE [email or web address] CHART. IT IS NOT A COPY OF THE [email or web address] PROGRESS NOTE. PRISCILLAD
== END ==
LOC: M PAIN 10:15
PROVIDERS: ATTEND Anesthesiology
DX: G89.29 Other chronic pain (principal); M46.1 Sacroiliitis, not elsewhere classified; M54.5 Low back pain; I10 Essential (primary) hypertension; Z79.4 Long term (current) use of insulin; Z79.899 Other long term (current) drug therapy; Z88.2 Allergy status to sulfonamides; Z88.8 Allergy status to other drugs, medicaments and biological substances; Z91.018 Allergy to other foods
CPT/HCPCS: G0260; J3301; Q9966

== ENCOUNTER → 2020-07-20 | Outpatient (REF) | payer BC ==
[~2020-07-20] MED LIST changes: -BUPIVACAINE HCL 0.25% 30 ML VIAL As Ordered ONE; -ISOVUE-M 200 41% 20ML VIAL (Q9966) As Ordered ONE; -LIDOCAINE 1% SDV INJ 30 ML VIAL As Ordered ONE; +OMEP1CAP73 PO; -OMEP20CA4 PO; -TRIAMCINOLONE ACETONIDE SUSP 40 MG/ML VIAL (J3301) As Ordered ONE; -diazePAM 5 MG TAB As Ordered ONE; -oxyCODONE 5MG TAB As Ordered ONE
== END ==
LOC: M SFHCWAGY 14:35
PROVIDERS: ATTEND Specialist
DX: Z12.4 Encounter for screening for malignant neoplasm of cervix (principal)
CPT/HCPCS: 87624; G0123

== ENCOUNTER → 2021-07-04 | Outpatient (CLI) | payer BC ==
[~2021-07-04] MED LIST changes: +LANTINJ4 SC; -LISI40TA PO; +LISI40TA4 PO; +METF-838 PO
--- NOTE | 2021-07-04 09:20 | REP ---
INDICATION: SPLENOMEGALY. COMPARISON: Splenic ultrasound dated 03/29/2019. TECHNIQUE: Multiple ultrasonographic images of the spleen and left kidney. FINDINGS: The spleen is again enlarged measuring 13.0 x 9.5 x 4.8 cm for a splenic index of 716.3. Normal splenic index is 480. On the comparison study the spleen measures 13.1 by 13.9 x 4.8 cm for a splenic index of 874. On the study today the spleen is otherwise homogeneous. There are no splenic splenic masses or cysts. There are no perisplenic fluid collections or masses. The left kidney is normal size measuring 11.8 x 5.6 x 5.7 cm. There is no right renal hydronephrosis, calculus, mass or cyst. No pararenal fluid collection or mass. IMPRESSION: Splenomegaly, not significantly changed from the comparison study. Negative left kidney. <Electronically signed by Leopoldo Fabian > 07/04/21 0916
== END ==
LOC: M RAD 06:54
PROVIDERS: ATTEND Internal Medicine Medical Oncology
DX: R16.1 Splenomegaly, not elsewhere classified (principal)

== ENCOUNTER → 2022-07-12 | Outpatient (REF) | payer BC ==
[~2022-07-12] MED LIST changes: +HYDR-3490; +JARD1TAB3; +POTA4.25
== END ==
LOC: M WUC 19:56
PROVIDERS: ATTEND Physician Assistant
DX: N30.01 Acute cystitis with hematuria (principal)

== ENCOUNTER → 2023-10-01 | Outpatient (REF) | payer MEDICARE ==
[2023-10-01 18:56] LABS: CREATININE, URINE 54.1 MG/DL; CREATININE,RANDOM URINE 54.1 MG/DL; MAU/CREAT RATIO 7.3 MCG/MG (0.0-30.0)
== END ==
LOC: M LAB REF 17:25
PROVIDERS: ATTEND Nurse Practitioner Family
DX: E11.65 Type 2 diabetes mellitus with hyperglycemia (principal)